=== PATIENT | female | born 1945 | race Caucasian/White ===

== ENCOUNTER → 2016-09-04 | Day surgery (SDC) | payer OTHER ==
[~2016-09-04] VITALS: Ht 149.9 cm; Wt 69.9 kg
[~2016-09-04] MED LIST: ACETYLCHOLINE OPHTH SOLN 1% 2ML As Ordered ONE; ADV250INH INH; ALEV220T26 PO; ASPI81TA85 PO; BALANCED SALT IRRIGATION SOLUTION 500ML BAG (FOR OR EYE MACHINE) As Ordered ONE; BIMA01SOL PO; CEFUROXIME 1MG/0.1ML INTRACAMERAL INJ As Ordered ONE; CRAN400C PO; D5W/0.2% SODIUM CHLORIDE 250 ML IV SCH; ECHI80CA PO; ENAL20TA PO; FISH1000 PO; HEALON DUET (HEALON 10MG/ML 0.55ML & HEALON ENDOCOAT 30MG/ML 0.85ML) As Ordered ONE; LIDOCAINE 0.75%/EPINEPHRINE 0.025% IN BSS 1ML SYR INTRACAMERAL (OR ONLY) As Ordered ONE; LORA10CA PO; LR 1,000 ML IV SCH; LUTE10TA PO; MAGNESIUM PO; MELO7.5T6 PO; MIDAZOLAM INJ 2 MG/2 ML VIAL (J2250) As Ordered ONE; OFLOXACIN 0.3 % (OCUFLOX) OPTH SOL 5ML OS ONE; OMEP20TA PO; PHENYLEPHRINE 2.5% OPHTH SOL 2ML OS ONE; POVIDONE-IODINE 5% OPHTH PREP SOL 30ML As Ordered ONE; PROPARACAINE 0.5% OPHTH SOL 15ML OS ONE; REDCAP3 PO; TOBRADEX OPHTH OINT 3.5 GM As Ordered ONE; TRIA37.5 PO; TROPICAMIDE 1% OPHTH SOLN 2 ML OS ONE; VITA100037 PO; VITA500C24 PO; fentaNYL 100 MCG/2 ML INJECTION (J3010) As Ordered ONE
[2016-09-04 12:00] VITALS: BP 118/72
--- NOTE | 2016-09-05 10:10 | RO ---
DATE OF PROCEDURE: 09/04/2016 PREOPERATIVE DIAGNOSIS: Visually significant nuclear sclerotic cataract left eye. 2. Glaucoma POSTOPERATIVE DIAGNOSIS: Visually significant nuclear sclerotic cataract left eye. 2. Glaucoma PROCEDURE: Extracapsular cataract extraction with use of phacoemulsification and placement of intraocular lens AU00T0, 20.5 diopter left eye with use of endoscopic cyclophotocoagulation. SURGEON: Christopher Olson DO DIRECTOR OF ACQUISITION MARKETING: ANESTHESIA: Local with monitored anesthesia care (MAC). COMPLICATIONS: None. POSTOPERATIVE CONDITION: Stable. INDICATION FOR SURGERY: Blurred vision left eye affecting patient's activities of daily living. DESCRIPTION OF PROCEDURE: The patient was seen in the preoperative area and properly identified. The correct operative eye was identified and marked. Attention was turned to that eye. The patient received topical antibiotics in the preoperative area. The patient then received topical dilating drops consisting of tropicamide and phenylephrine. The patient was then transferred to the operating room. The correct side was reidentified. The patient received topical anesthetics and antibiotics on the surface of the eye. The eye was prepped and draped in a sterile fashion. The upper and lower eyelids were isolated with Tegaderm tape, and the lids were held open with an adjustable speculum. Using a sideport blade, a paracentesis incision was made. Intraocular preservative-free lidocaine was then injected into the anterior chamber. Viscoelastic was then injected into the anterior chamber through the paracentesis. Using a 2.65 mm sharp-tipped keratome, the anterior chamber was entered via a temporal clear corneal incision. A continuous curvilinear capsulorrhexis was created with the aid of a 26-gauge cystotome and Utrata forceps. Hydrodissection was performed with balanced salt solution (BSS) on a blunt cannula until the nucleus was freely mobile. The crystalline lens was phacoemulsified and aspirated. Additional cohesive viscoelastic was placed into the capsular bag to deepen it. An AU00T0, 20.5 diopter lens was placed into the capsular bag and confirmed by visualizing the continuous curvilinear capsulorrhexis. Additional viscoelastic was placed in ciliary sulcus to deepen it. The ECP probe was introduced to clear corneal temporal incision and the ciliary processes were visualized. ECP laser was used for 270 degrees at a power of 0.25. Thirteen spots were fired and then the probe was removed from the eye. Additional irrigation and aspiration was used to remove cortical material and remaining viscoelastic. The clear corneal incision was hydrated with BSS on a blunt cannula. The lens was well positioned. The incisions were then tested for leaks and found to be negative. The eye was then palpated for appropriate pressure and adjusted accordingly with BSS. The eyelid speculum was then carefully removed. Tobradex ointment was placed in the eye. An eye patch and shield were then secured over the eye. The patient tolerated the procedure well and was discharged to the recovery unit in a stable condition. ERIC
== END | disposition home or self-care (01) ==
LOC: M SDC 08:10
PROVIDERS: ATTEND Ophthalmology
DX: H25.12 Age-related nuclear cataract, left eye (principal); H40.9 Unspecified glaucoma; I10 Essential (primary) hypertension; E78.5 Hyperlipidemia, unspecified; K21.9 Gastro-esophageal reflux disease without esophagitis; J44.9 Chronic obstructive pulmonary disease, unspecified; Z88.0 Allergy status to penicillin; Z88.8 Allergy status to other drugs, medicaments and biological substances; Z87.891 Personal history of nicotine dependence; Z79.899 Other long term (current) drug therapy
CPT/HCPCS: 66711; 66984; J2250; J3010; V2632

== ENCOUNTER → 2016-09-10 | Outpatient (CLI) | payer OTHER ==
[~2016-09-10] MED LIST changes: -ACETYLCHOLINE OPHTH SOLN 1% 2ML As Ordered ONE; -BALANCED SALT IRRIGATION SOLUTION 500ML BAG (FOR OR EYE MACHINE) As Ordered ONE; -CEFUROXIME 1MG/0.1ML INTRACAMERAL INJ As Ordered ONE; -D5W/0.2% SODIUM CHLORIDE 250 ML IV SCH; -HEALON DUET (HEALON 10MG/ML 0.55ML & HEALON ENDOCOAT 30MG/ML 0.85ML) As Ordered ONE; -LIDOCAINE 0.75%/EPINEPHRINE 0.025% IN BSS 1ML SYR INTRACAMERAL (OR ONLY) As Ordered ONE; -LR 1,000 ML IV SCH; -MIDAZOLAM INJ 2 MG/2 ML VIAL (J2250) As Ordered ONE; -OFLOXACIN 0.3 % (OCUFLOX) OPTH SOL 5ML OS ONE; -PHENYLEPHRINE 2.5% OPHTH SOL 2ML OS ONE; -POVIDONE-IODINE 5% OPHTH PREP SOL 30ML As Ordered ONE; -PROPARACAINE 0.5% OPHTH SOL 15ML OS ONE; -TOBRADEX OPHTH OINT 3.5 GM As Ordered ONE; -TROPICAMIDE 1% OPHTH SOLN 2 ML OS ONE; -fentaNYL 100 MCG/2 ML INJECTION (J3010) As Ordered ONE
--- NOTE | 2016-09-10 14:39 | REPMRS ---
Patient History The patient states she had a clinical breast exam in 09/2016. Patient is postmenopausal and is nulliparous. Family history of breast cancer in sister at age 50 or over and breast cancer in niece under age 50. Digital Woman Screen Mammo: September 10, 2016 - Exam #: [id number] Bilateral CC and MLO view(s) were taken. Technologist: Beth Abdul, Technologist Prior study comparison: August 28, 2015, digital woman screen mammo performed at [facility]. June 09, 2014, digital woman screen mammo performed at [facility]. FINDINGS: There are scattered fibroglandular densities. There has been no change in the appearance of the mammogram from the prior studies. There is a mild amount of residual fibroglandular tissue which is fairly symmetric. There is no interval development of dominant mass, architectural distortion, or clustered microcalcification suggestive of malignancy. ASSESSMENT: BI-RADS/ACR category 1 mammogram. Negative. Recommendation Routine screening mammogram in 1 year (for women over age 40). This mammogram was interpreted with the aid of an FDA-approved computer-aided dectection system. Electronically Signed By: Richy Strickland MD 09/10/16 0721
== END ==
LOC: M WHC 12:46
PROVIDERS: ATTEND Nurse Practitioner Women's Health
DX: Z12.31 Encounter for screening mammogram for malignant neoplasm of breast (principal); Z78.0 Asymptomatic menopausal state; Z13.820 Encounter for screening for osteoporosis; Z85.3 Personal history of malignant neoplasm of breast

== ENCOUNTER → 2016-09-10 | Outpatient (CLI) | payer OTHER ==
--- NOTE | 2016-09-12 09:02 | DEXA ---
AP SPINE L1 - L4 1.616 3.4 5.0 LT FEMUR TOTAL 0.8 7. -1.1 0.4 RT FEMUR TOTAL 0.790 -1.7 -0.2 TOTAL BODY TOTAL OTHER DUAL FEMUR FRAX* ASSESSMENT Risk factors: None. 10 year probability of fracture Major osteoporotic fracture 12.4 % Hip fracture 2.8 % COMMENTS: Normal bone densitometry of the spine. There is low bone density of the hips. The decreased density of the spine does represent a significant change. The decreased density of the left hip does represent a significant change. The decreased density of the right hip does represent a significant change. The density of the spine has decreased 13.9% since the initial exam on 2009. The spine density has decreased 4.6% since the most recent exam on 06/09/2014. The density of the left hip has decreased 15.3% since the initial exam on 2009. The density of the left hip has decreased 5.2% since the most recent exam on . The density of the right hip has decreased 18.1% since the initial exam on 09/18. The density of the right hip has decreased 7.7% since the most recent exam on . FOLLOW-UP: Recommendation for the next bone density exam: 2 years. ERIC
== END ==
LOC: M WHC 12:49
PROVIDERS: ATTEND Internal Medicine
DX: Z12.31 Encounter for screening mammogram for malignant neoplasm of breast (principal); Z13.820 Encounter for screening for osteoporosis; Z78.0 Asymptomatic menopausal state; Z85.3 Personal history of malignant neoplasm of breast
CPT/HCPCS: 77080; G0202; G0463

== ENCOUNTER → 2016-09-25 | Day surgery (SDC) | payer OTHER ==
[~2016-09-25] VITALS: Ht 149.9 cm; Wt 69.9 kg
[~2016-09-25] MED LIST changes: +ACETYLCHOLINE OPHTH SOLN 1% 2ML (MIOCHOL-E) As Ordered ONE; +BALANCED SALT IRRIGATION SOLUTION 500ML BAG (FOR OR EYE MACHINE) As Ordered ONE; +D5W/0.2% SODIUM CHLORIDE 250 ML IV ONE; +HEALON DUET (HEALON 10MG/ML 0.55ML & HEALON ENDOCOAT 30MG/ML 0.85ML) As Ordered ONE; +LIDOCAINE 0.75%/EPINEPHRINE 0.025% IN BSS 1ML SYR INTRACAMERAL (OR ONLY) As Ordered ONE; +MIDAZOLAM INJ 2 MG/2 ML VIAL (J2250) As Ordered ONE; +OFLOXACIN 0.3 % (OCUFLOX) OPTH SOL 5ML OD ONE; +PHENYLEPHRINE 2.5% OPHTH SOL 2ML OD ONE; +POVIDONE-IODINE 5% OPHTH PREP SOL 30ML As Ordered ONE; +PROPARACAINE 0.5% OPHTH SOL 15ML OD ONE; +TOBRADEX OPHTH OINT 3.5 GM As Ordered ONE; +TROPICAMIDE 1% OPHTH SOLN 2ML OD ONE; +fentaNYL 100 MCG/2 ML INJECTION (J3010) As Ordered ONE
[2016-09-25 12:45] VITALS: BP 121/72
--- NOTE | 2016-09-29 10:57 | RO ---
DATE OF PROCEDURE: 09/25/2016 PREOPERATIVE DIAGNOSES: 1. Visually significant nuclear sclerotic cataract right eye. 2. Glaucoma. POSTOPERATIVE DIAGNOSES: 1. Visually significant nuclear sclerotic cataract right eye. 2. Glaucoma. PROCEDURE: 1. Extracapsular cataract removal with insertion of intraocular lens implant, AU00T0, 19.5 diopter right eye. 2. Use of endoscopic cyclophotocoagulation. SURGEON: Christopher Olson DO MAINTENANCE ELECTRICIAN: ANESTHESIA: Local with monitored anesthesia care (MAC). COMPLICATIONS: None. POSTOPERATIVE CONDITION: Stable. INDICATION FOR SURGERY: Blurred vision right eye affecting patient's activities of daily living. DESCRIPTION OF PROCEDURE: The patient was seen in the preoperative area and properly identified. The correct operative eye was identified and marked. Attention was turned to that eye. The patient received topical antibiotics in the preoperative area. The patient then received topical dilating drops consisting of tropicamide and phenylephrine. The patient was then transferred to the operating room. The correct side was reidentified. The patient received topical anesthetics and antibiotics on the surface of the eye. The eye was prepped and draped in a sterile fashion. The upper and lower eyelids were isolated with Tegaderm tape, and the lids were held open with an adjustable speculum. Using a sideport blade, a paracentesis incision was made. Intraocular preservative-free lidocaine was then injected into the anterior chamber. Viscoelastic was then injected into the anterior chamber through the paracentesis. Using a 2.75 mm sharp-tipped keratome, the anterior chamber was entered via a temporal clear corneal incision. A continuous curvilinear capsulorrhexis was created with the aid of a 26-gauge cystotome and Utrata forceps. Hydrodissection was performed with balanced salt solution (BSS) on a blunt cannula until the nucleus was freely mobile. The crystalline lens was phacoemulsified and aspirated. Additional cohesive viscoelastic was placed into the capsular bag to deepen it. An AU00T0 lens was placed into the capsular bag and confirmed by visualizing the continuous curvilinear capsulorrhexis. Additional irrigation and aspiration was used to remove cortical material and remaining viscoelastic. After the implant is injected into the capsular bag, additional viscoelastic was placed in the ciliary sulcus. The endoscopic cyclophotocoagulation probe was placed into the anterior chamber from the temporal clear corneal incision and advanced to the distal ciliary sulcus so the prosthesis could be visualized on the monitor and photocoagulation was applied to the ciliary processes for a total energy of 0.15 for 270 degrees. Probe was then withdrawn from the eye. Irrigation aspiration was performed to remove all the viscoelastic. BSS was used to hydrate the temporal clear corneal incision and paracentesis incision. Miochol was then placed into the paracentesis incision site. Moderately small pupil. BSS was then used to reinflate the anterior chamber and adjust accordingly appropriate intraocular pressure. The clear corneal incision was hydrated with BSS on a blunt cannula. The lens was well positioned. The incisions were then tested for leaks and found to be negative. The eye was then palpated for appropriate pressure and adjusted accordingly with BSS. Several drops of antibiotics and Iopidine were placed in the eye. The eyelid speculum was then carefully removed. Maxitrol ointment was placed in the eye. An eye patch and shield were then secured over the eye. The patient tolerated the procedure well and was discharged to the recovery unit in a stable condition.
== END | disposition home or self-care (01) ==
LOC: M SDC 09:03
PROVIDERS: ATTEND Ophthalmology
DX: H25.11 Age-related nuclear cataract, right eye (principal); H40.10X0 Unspecified open-angle glaucoma, stage unspecified; I10 Essential (primary) hypertension; E78.5 Hyperlipidemia, unspecified; K21.9 Gastro-esophageal reflux disease without esophagitis; J44.9 Chronic obstructive pulmonary disease, unspecified; F17.210 Nicotine dependence, cigarettes, uncomplicated; Z88.0 Allergy status to penicillin; Z88.8 Allergy status to other drugs, medicaments and biological substances; Z79.899 Other long term (current) drug therapy
CPT/HCPCS: 66711; 66984; J2250; J3010; V2632

== ENCOUNTER 2017-09-23 09:36 | Day surgery (SDC) | payer OTHER ==
[2017-09-23] MEDS: NS 1,000 ML IV (10:43)
[2017-09-23] MEDS ORDERED: PROPOFOL 200 MG/20 ML VIAL As Ordered ×2 (11:03)
[2017-09-23] MEDS ORDERED: LIDOCAINE 2% INJ 100 MG/5 ML SDV (FOR ANES.) As Ordered ×2 (11:03→11:04)
[2017-09-23] MEDS ORDERED: PHENYLephrine HCL 500 MCG/5 ML (100MCG/ML) SYRINGE (J2370) As Ordered (11:31)
== END 2017-09-23 12:40 | disposition home or self-care (01) ==
LOC: M OPP 09:36
DX: Z12.11 Encounter for screening for malignant neoplasm of colon (principal); Z86.010 Personal history of colon polyps; K64.0 First degree hemorrhoids; K57.30 Diverticulosis of large intestine without perforation or abscess without bleeding; R12 Heartburn; K22.70 Barrett's esophagus without dysplasia; K22.8 Other specified diseases of esophagus; K44.9 Diaphragmatic hernia without obstruction or gangrene; I12.9 Hypertensive chronic kidney disease with stage 1 through stage 4 chronic kidney disease, or unspecified chronic kidney disease; E78.5 Hyperlipidemia, unspecified; M10.9 Gout, unspecified; K21.9 Gastro-esophageal reflux disease without esophagitis; R23.3 Spontaneous ecchymoses; M19.90 Unspecified osteoarthritis, unspecified site; M54.9 Dorsalgia, unspecified; Z85.828 Personal history of other malignant neoplasm of skin; R51 Headache; H25.9 Unspecified age-related cataract; H40.9 Unspecified glaucoma; Z78.0 Asymptomatic menopausal state; J44.9 Chronic obstructive pulmonary disease, unspecified; R06.02 Shortness of breath; N18.9 Chronic kidney disease, unspecified; N39.3 Stress incontinence (female) (male); Z87.891 Personal history of nicotine dependence; Z88.5 Allergy status to narcotic agent; Z88.0 Allergy status to penicillin; Z79.899 Other long term (current) drug therapy
CPT/HCPCS: G0105

== ENCOUNTER → 2017-10-27 | Outpatient (CLI) | payer OTHER | LOC: M WHC 13:17 | DX: Z12.31 Encounter for screening mammogram for malignant neoplasm of breast (principal); Z78.0 Asymptomatic menopausal state; Z80.3 Family history of malignant neoplasm of breast | CPT/HCPCS: 77067 ==

== ENCOUNTER → 2018-12-22 | Outpatient (CLI) | payer MEDICARE ==
[~2018-12-22] MED LIST changes: -ACETYLCHOLINE OPHTH SOLN 1% 2ML (MIOCHOL-E) As Ordered ONE; -BALANCED SALT IRRIGATION SOLUTION 500ML BAG (FOR OR EYE MACHINE) As Ordered ONE; +BIMA01SOL OU; -BIMA01SOL PO; -D5W/0.2% SODIUM CHLORIDE 250 ML IV ONE; +ENAL5TAB; -HEALON DUET (HEALON 10MG/ML 0.55ML & HEALON ENDOCOAT 30MG/ML 0.85ML) As Ordered ONE; -LIDOCAINE 0.75%/EPINEPHRINE 0.025% IN BSS 1ML SYR INTRACAMERAL (OR ONLY) As Ordered ONE; -MELO7.5T6 PO; +MELO7.5T7 PO; -MIDAZOLAM INJ 2 MG/2 ML VIAL (J2250) As Ordered ONE; -OFLOXACIN 0.3 % (OCUFLOX) OPTH SOL 5ML OD ONE; -PHENYLEPHRINE 2.5% OPHTH SOL 2ML OD ONE; -POVIDONE-IODINE 5% OPHTH PREP SOL 30ML As Ordered ONE; -PROPARACAINE 0.5% OPHTH SOL 15ML OD ONE; -TOBRADEX OPHTH OINT 3.5 GM As Ordered ONE; -TROPICAMIDE 1% OPHTH SOLN 2ML OD ONE; -VITA100037 PO; +VITA100067 PO; +VITA50005; -fentaNYL 100 MCG/2 ML INJECTION (J3010) As Ordered ONE
--- NOTE | 2018-12-22 19:28 | REPMRS ---
Patient History The patient states she has not had a clinical breast exam in over a year. Family history of breast cancer at age 50 or over in sister, breast cancer under age 50 in niece. Digital Woman Screen Mammo: December 22, 2018 - Exam #: [id number] Bilateral CC and MLO view(s) were taken. Technologist: Priscila So, Technologist Prior study comparison: October 27, 2017, bilateral digital woman screen mammo performed at [facility]. September 10, 2016, digital woman screen mammo performed at [facility]. August 28, 2015, digital woman screen mammo performed at [facility]. FINDINGS: There are scattered fibroglandular densities. There has been no change in the appearance of the mammogram from the prior studies. There is a mild amount of scattered fibroglandular density which is fairly symmetric. There is no interval development of dominant mass, architectural distortion, or grouped microcalcification suggestive of malignancy. 3-D tomosynthesis shows no additional findings. Assessment: BI-RADS/ACR category 1 mammogram. Negative Mammogram. Recommendation Routine screening mammogram of both breasts in 1 year (for women over age 40). This patient's Lifetime Breast Cancer Risk is estimated at 9.6 %. This mammogram was interpreted with the aid of an FDA-approved computer-aided dectection system. Electronically Signed By: Rony Raymundo MD 12/22/18 [id number]
== END ==
LOC: M WHC 12:58
PROVIDERS: ATTEND Nurse Practitioner Adult Health
DX: Z12.31 Encounter for screening mammogram for malignant neoplasm of breast (principal); Z80.3 Family history of malignant neoplasm of breast

== ENCOUNTER → 2020-09-20 | Outpatient (CLI) | payer MEDICARE ==
[~2020-09-20] MED LIST changes: -ASPI81TA85 PO; +ASPI81TA86 PO; -ENAL20TA PO; +ENAL20TA11 PO; +ENAL5TA; -ENAL5TAB; +OMEP-358 PO; -OMEP20TA PO
--- NOTE | 2020-09-20 13:09 | REPPI ---
INDICATION: ABNORMAL PULMONARY FUNCTION TESTS COMPARISON: 07/05/2019 TECHNIQUE: PA and lateral. FINDINGS: Chronic elevation to the left hemidiaphragm is again noted and unchanged. Lung elkins demonstrate mild chronic interstitial changes. No acute consolidation, obvious effusion or pneumothorax. Visualized portions of the mediastinum and cardiac silhouette are stable. Atherosclerotic changes to the aorta noted. Skeletal structures demonstrate degenerative changes primarily involving the bilateral shoulders and thoracic spine. 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 Chronic interstitial changes. <Electronically signed by Geovani Mcgrath > 09/20/20 0578
== END ==
LOC: M PLAIMG 12:47
PROVIDERS: ATTEND Internal Medicine Pulmonary Disease
DX: R94.2 Abnormal results of pulmonary function studies (principal)

== ENCOUNTER → 2020-12-03 | Outpatient (REF) | payer MEDICARE | LOC: M LAB REF 17:20 | PROVIDERS: ATTEND Internal Medicine Nephrology | DX: E83.42 Hypomagnesemia (principal) ==

== ENCOUNTER → 2021-09-30 | Outpatient (CLI) | payer MEDICARE ==
[~2021-09-30] MED LIST changes: +ALBU8.5H INH; +ALEV220T22 PO; +COQ-100C5 PO; +GLUCTAB6 PO; +MAGN400C PO; +OMEP40CA5 PO; +TRAM50TA2 PO; +TRIA37.53 PO; +VITA500045 PO; +VITMTA PO
== END ==
LOC: M LABSMTC 10:43
PROVIDERS: ATTEND Anesthesiology
DX: Z01.812 Encounter for preprocedural laboratory examination (principal)

== ENCOUNTER 2021-10-04 08:03 | Day surgery (SDC) | payer MEDICARE ==
[~2021-10-04] VITALS: Ht 149.9 cm; Wt 66.1 kg
[~2021-10-04 08:03] MED LIST changes: -GLUCTAB6 PO; +GLUCTAB7 PO; +NS 1,000 ML IV ONE; -TRIA37.53 PO; +TRIA37.577 PO
[2021-10-04] MEDS ORDERED: LIDOCAINE 2% 100MG/5ML SDV (FOR ANES.) As Ordered ONE (09:23)
[2021-10-04] MEDS ORDERED: propofoL 200 MG/20 ML VIAL As Ordered ONE (09:23)
[2021-10-04] MEDS ORDERED: fentaNYL 100 MCG/2 ML INJECTION As Ordered ONE (09:23)
[2021-10-04 09:56] VITALS: BP 154/73
== END 2021-10-04 09:55 | disposition home or self-care (01) ==
LOC: M OPP 08:03
PROVIDERS: ATTEND Internal Medicine Gastroenterology
DX: R68.81 Early satiety (principal); R12 Heartburn; R13.10 Dysphagia, unspecified; N28.9 Disorder of kidney and ureter, unspecified; J44.9 Chronic obstructive pulmonary disease, unspecified; Z79.1 Long term (current) use of non-steroidal anti-inflammatories (NSAID); Z79.51 Long term (current) use of inhaled steroids; Z79.891 Long term (current) use of opiate analgesic; Z79.899 Other long term (current) drug therapy; Z88.0 Allergy status to penicillin; Z88.5 Allergy status to narcotic agent; Z87.891 Personal history of nicotine dependence
CPT/HCPCS: 43235; J3010

== ENCOUNTER → 2021-11-01 | Outpatient (REF) | payer MEDICARE ==
[~2021-11-01] MED LIST changes: -NS 1,000 ML IV ONE
== END ==
LOC: M LAB REF 10:07
PROVIDERS: ATTEND Internal Medicine
DX: R19.7 Diarrhea, unspecified (principal)

== ENCOUNTER → 2022-03-26 | Outpatient (CLI) | payer MEDICARE | LOC: M PLAIMG 13:08 | PROVIDERS: ATTEND Internal Medicine Pulmonary Disease | DX: R05.9 Cough, unspecified (principal) ==

== ENCOUNTER → 2022-07-30 | Outpatient (CLI) | payer MEDICARE ==
[~2022-07-30] MED LIST changes: +BARIUM SULFATE 700 MG TABLET (E-Z-DISK) As Ordered ONE; +E-Z-PAQUE 96% w/w SUSP 176GM BTL As Ordered ONE; +ENAL1TAB48; -ENAL5TA; +VARIBAR NECTAR 40% w/v 240ML SUSP BTL As Ordered ONE; +VARIBAR PUDDING 40% w/v 230ML TUBE As Ordered ONE
== END ==
LOC: M RAD 10:05
PROVIDERS: ATTEND Otolaryngology
DX: R13.19 Other dysphagia (principal)

== ENCOUNTER 2022-11-03 12:33 | Day surgery (SDC) | payer MEDICARE ==
[~2022-11-03 12:33] MED LIST changes: -BARIUM SULFATE 700 MG TABLET (E-Z-DISK) As Ordered ONE; -E-Z-PAQUE 96% w/w SUSP 176GM BTL As Ordered ONE; +ENAL1TAB52 PO; -ENAL20TA11 PO; +NS 1,000 ML IV ONE; -VARIBAR NECTAR 40% w/v 240ML SUSP BTL As Ordered ONE; -VARIBAR PUDDING 40% w/v 230ML TUBE As Ordered ONE
[2022-11-03] MEDS ORDERED: propofoL 200 MG/20 ML VIAL As Ordered ONE (15:40)
[2022-11-03] MEDS ORDERED: LIDOCAINE 2% 100MG/5ML SDV (FOR ANES.) As Ordered ONE (15:40)
[2022-11-03 16:14] VITALS: TEMP 97.3
[2022-11-03 16:35] VITALS: BP 185/93; O2SAT 97
== END 2022-11-03 17:00 | disposition home or self-care (01) ==
LOC: M OPP 12:33
PROVIDERS: ATTEND Internal Medicine Gastroenterology
DX: K22.89 Other specified disease of esophagus (principal); K44.9 Diaphragmatic hernia without obstruction or gangrene; Z79.1 Long term (current) use of non-steroidal anti-inflammatories (NSAID); Z79.899 Other long term (current) drug therapy; Z88.0 Allergy status to penicillin; Z88.5 Allergy status to narcotic agent

== ENCOUNTER 2023-06-25 12:06 | Inpatient (IN) | payer MEDICARE ==
[~2023-06-25] VITALS: Ht 149.9 cm; Wt 61.4 kg
[~2023-06-25 12:06] MED LIST changes: -NS 1,000 ML IV ONE
[2023-06-25] MEDS: traMADol 50 MG TAB PO ONE (15:04)
[2023-06-25 16:25] LABS: BASO % 0.4 % (0.0-1.0); EOS # 0.1 10^3/uL (0.0-0.5); EOS % 0.8 % (0.0-3.0); HEMATOCRIT 34.5 % (36.0-47.0); HEMOGLOBIN 11.3 g/dl (12.0-15.5); LYMPH % 13.5 % (24.0-44.0); MEAN CORPUSCULAR HEMOGLOBIN 33.6 pg (27.0-33.0); MEAN CORPUSCULAR HGB CONC 32.8 g/dl (32.0-36.5); MEAN CORPUSCULAR VOLUME 102.7 fl (80.0-96.0); MONO # 0.6 10^3/uL (0.0-0.8); MONO % 7.5 % (2.0-8.0); NEUTROPHILS # 5.7 10^3/uL (1.5-8.5); PLATELET COUNT, AUTOMATED 110 10^3/uL (150-450); RED BLOOD COUNT 3.36 10^6/uL (4.00-5.40); WHITE BLOOD COUNT 7.3 10^3/uL (4.0-10.0)
[2023-06-25 16:39] LABS: INR 1.03; PROTHROMBIN TIME 13.2 SECONDS (12.5-14.5)
[2023-06-25 16:56] LABS: ALBUMIN 3.4 G/DL (3.2-5.2); BILIRUBIN,TOTAL 0.8 MG/DL (0.3-1.2); CALCIUM LEVEL 9.1 MG/DL (8.3-10.6); CREATININE FOR GFR 1.54 MG/DL (0.55-1.30); GLOMERULAR FILTRATION RATE 34.6 (>39); MAGNESIUM LEVEL 2.2 MG/DL (1.8-2.4); POTASSIUM SERUM 3.8 MMOL/L (3.5-5.1); TOTAL PROTEIN 5.6 G/DL (5.7-8.2)
[2023-06-25] MEDS ORDERED: MAALOX 30 ML SUSP *UDC PO PRN (17:15)
[2023-06-25] MEDS ORDERED: MOM 30ML SUSPENSION UDC PO PRN (17:15)
[2023-06-25] MEDS: NS 1,000 ML IV SCH (17:15)
[2023-06-25] MEDS: MORPHINE 4 MG/ML 1ML VIAL IV ONE (17:17)
[2023-06-25] MEDS ORDERED: MORPHINE 2 MG/ML 1ML VIAL IV PRN ×2 (17:25)
[2023-06-25] MEDS ORDERED: ALBUTEROL 90 MCG/ACT 8GM HFA INHALER INH PRN (18:05)
[2023-06-25] MEDS ORDERED: COEN100T PO (18:45)
[2023-06-25] MEDS ORDERED: THERTAB65 PO (18:45)
[2023-06-25] MEDS ORDERED: HOME MED LIST COMPLETE! XX SCH (18:50)
[2023-06-25] MEDS: LATANOPROST 0.005% OPHTH SOLN 2.5 ML OU SCH (21:00)
[2023-06-25 21:53] VITALS: BP 188/99; TEMP 97.9; O2SAT 95
[2023-06-25] MEDS: ACETAMINOPHEN TAB 650MG DOSE (2X325MG) PO PRN (22:15)
[2023-06-25] MEDS: MORPHINE 4 MG/ML 1ML VIAL IV PRN (23:22)
[2023-06-26 00:10] VITALS: BP 142/91; O2SAT 96
[2023-06-26 01:34] LABS: TOTAL 25(OH) VITAMIN D 110.5 NG/ML (20.0-100.0)
[2023-06-26 05:45] VITALS: BP 147/91; TEMP 97.7; O2SAT 98
[2023-06-26] MEDS: ADVAIR HFA 115/21MCG INHALER INH SCH (07:47)
[2023-06-26 07:48] VITALS: O2SAT 98
[2023-06-26] MEDS: PREVNAR-20 VACCINE 0.5ML SYRINGE IM.IMMUN ONE (08:40)
[2023-06-26] MEDS: FLUZONE HIGH DOSE(65YR UP)QUAD/PF 240MCG/0.7ML SYRINGE IM.IMMUN ONE (08:40)
[2023-06-26] MEDS: LABETALOL 100MG/20ML VIAL IV PRN (11:38)
[2023-06-26 14:15] VITALS: BP 168/103; TEMP 97.9; O2SAT 95
[2023-06-26] MEDS: HYDROMORPHONE HCL 0.5 MG/ 0.5 ML SYRINGE IV PRN (16:26)
[2023-06-26] MEDS: LIDOCAINE 5% (LIDODERM) PATCH TD SCH (16:42)
[2023-06-26 17:00] VITALS: BP 148/79
[2023-06-26 17:22] LABS: CALCIUM LEVEL 8.9 MG/DL (8.3-10.6); CREATININE FOR GFR 1.44 MG/DL (0.55-1.30); GLOMERULAR FILTRATION RATE 37.4 (>39)
[2023-06-26] MEDS ORDERED: ROCURONIUM BROMIDE 50MG/5ML VIAL As Ordered ONE (18:19)
[2023-06-26] MEDS ORDERED: LIDOCAINE 2% 100MG/5ML SDV (FOR ANES.) As Ordered ONE (18:19)
[2023-06-26] MEDS ORDERED: propofoL 200 MG/20 ML VIAL As Ordered ONE (18:19)
[2023-06-26] MEDS ORDERED: fentaNYL 100 MCG/2 ML INJECTION As Ordered ONE (18:19)
[2023-06-26] MEDS ORDERED: VANCOMYCIN 1000MG/20ML VIAL As Ordered ONE (18:26)
[2023-06-26] MEDS ORDERED: TRANEXAMIC ACID 100 MG/ML 10ML VIAL As Ordered ONE (18:27)
[2023-06-26] MEDS: ceFAZolin 2 GM/D5W 50 ML IV BAG As Ordered ONE (19:25)
[2023-06-26] MEDS ORDERED: PHENYLephrine 500MCG 5ML (100MCG/ML) SYRINGE As Ordered ONE (19:30)
[2023-06-26] MEDS ORDERED: ePHEDrine SULFATE 25 MG/5 ML(5MG/ML) SYRINGE As Ordered ONE (19:30)
[2023-06-26] MEDS ORDERED: METOCLOPRAMIDE INJ 10MG/2ML VIAL As Ordered ONE (19:33)
[2023-06-26] MEDS ORDERED: ONDANSETRON 4MG 2ML VIAL As Ordered ONE (19:33)
[2023-06-26] MEDS ORDERED: ACETAMINOPHEN 1000MG 100ML IV BAG As Ordered ONE (19:52)
[2023-06-26] MEDS ORDERED: SUGAMMADEX SODIUM 500 MG/5 ML VIAL (BRIDION) As Ordered ONE (20:41)
[2023-06-26] MEDS: HEPARIN SOD (PORCINE) 5000UNITS/ML 1ML VIAL/SYRINGE SC SCH (21:00)
[2023-06-26] MEDS ORDERED: oxyCODONE 5MG TAB PO PRN (22:35)
[2023-06-26] MEDS: LR 1,000 ML IV SCH ×2 (22:35→23:50)
[2023-06-26] MEDS ORDERED: HYDROMORPHONE HCL 0.5 MG/ 0.5 ML SYRINGE IV PRN (22:35)
[2023-06-26] MEDS: fentaNYL 100 MCG/2 ML INJECTION IV PRN (23:10)
[2023-06-26] MEDS: ONDANSETRON 4MG 2ML VIAL IV PRN (23:34)
[2023-06-27] VITALS (13 sets, daily range): BP systolic 102–183; BP diastolic 58–87; TEMP 97.3–98.1; O2SAT 90–97
[2023-06-27] MEDS: PROMETHAZINE 25MG/ML 1ML VIAL IV ONE (00:10)
[2023-06-27 07:48] LABS: BASO % 0.3 % (0.0-1.0); HEMATOCRIT 28.9 % (36.0-47.0); LYMPH # 0.4 10^3/uL (1.5-5.0); LYMPH % 3.7 % (24.0-44.0); MEAN CORPUSCULAR HEMOGLOBIN 33.6 pg (27.0-33.0); MEAN CORPUSCULAR HGB CONC 31.8 g/dl (32.0-36.5); MEAN CORPUSCULAR VOLUME 105.5 fl (80.0-96.0); MONO # 0.6 10^3/uL (0.0-0.8); MONO % 5.7 % (2.0-8.0); NEUTROPHILS # 9.9 10^3/uL (1.5-8.5); NEUTROPHILS % 89.4 % (36.0-66.0); RED BLOOD COUNT 2.74 10^6/uL (4.00-5.40); WHITE BLOOD COUNT 11.1 10^3/uL (4.0-10.0)
[2023-06-27] MEDS: ASPIRIN 81MG ENTERIC TABLET PO SCH (08:07)
[2023-06-27 08:10] LABS: CALCIUM LEVEL 7.5 MG/DL (8.3-10.6); CREATININE FOR GFR 1.53 MG/DL (0.55-1.30); GLOMERULAR FILTRATION RATE 34.9 (>39); MAGNESIUM LEVEL 1.7 MG/DL (1.8-2.4); POTASSIUM SERUM 4.4 MMOL/L (3.5-5.1)
[2023-06-27 08:12] LABS: HEMOGLOBIN 9.2 g/dl (12.0-15.5)
[2023-06-27] MEDS: D5W/0.45% SODIUM CHLORIDE 1,000 ML IV SCH (13:59)
[2023-06-28 05:58] VITALS: BP 145/82; TEMP 97; O2SAT 95
[2023-06-28 06:51] LABS: BASO % 0.3 % (0.0-1.0); EOS % 0.2 % (0.0-3.0); HEMATOCRIT 28.6 % (36.0-47.0); HEMOGLOBIN 9.2 g/dl (12.0-15.5); LYMPH # 0.6 10^3/uL (1.5-5.0); LYMPH % 6.4 % (24.0-44.0); MEAN CORPUSCULAR HEMOGLOBIN 33.3 pg (27.0-33.0); MEAN CORPUSCULAR HGB CONC 32.2 g/dl (32.0-36.5); MEAN CORPUSCULAR VOLUME 103.6 fl (80.0-96.0); MONO # 0.7 10^3/uL (0.0-0.8); MONO % 7.2 % (2.0-8.0); NEUTROPHILS # 8.5 10^3/uL (1.5-8.5); NEUTROPHILS % 84.5 % (36.0-66.0); PLATELET COUNT, AUTOMATED 105 10^3/uL (150-450); RED BLOOD COUNT 2.76 10^6/uL (4.00-5.40)
[2023-06-28 07:12] LABS: CALCIUM LEVEL 8.1 MG/DL (8.3-10.6); CREATININE FOR GFR 1.85 MG/DL (0.55-1.30); MAGNESIUM LEVEL 1.7 MG/DL (1.8-2.4); POTASSIUM SERUM 3.8 MMOL/L (3.5-5.1)
[2023-06-28] MEDS: LR 1,000 ML IV SCH (08:51)
[2023-06-28] MEDS: CO-ENZYME Q10 50 MG CAP PO SCH (10:36)
[2023-06-28] MEDS: ASCORBIC ACID 500 MG TAB PO SCH (10:37)
[2023-06-28] MEDS: OMEPRAZOLE 20MG CAP PO SCH (10:37)
[2023-06-28 15:21] VITALS: BP 147/77; TEMP 97.9; O2SAT 92
[2023-06-28 20:10] VITALS: BP 146/72; TEMP 97.9; O2SAT 95
[2023-06-29 05:43] VITALS: BP 179/88; TEMP 97.7; O2SAT 97
[2023-06-29 06:19] LABS: BASO % 0.3 % (0.0-1.0); EOS # 0.1 10^3/uL (0.0-0.5); EOS % 0.9 % (0.0-3.0); HEMATOCRIT 27.4 % (36.0-47.0); HEMOGLOBIN 8.7 g/dl (12.0-15.5); LYMPH # 0.8 10^3/uL (1.5-5.0); LYMPH % 10.3 % (24.0-44.0); MEAN CORPUSCULAR HEMOGLOBIN 32.5 pg (27.0-33.0); MEAN CORPUSCULAR HGB CONC 31.8 g/dl (32.0-36.5); MEAN CORPUSCULAR VOLUME 102.2 fl (80.0-96.0); MONO # 0.6 10^3/uL (0.0-0.8); MONO % 8.2 % (2.0-8.0); NEUTROPHILS % 79.2 % (36.0-66.0); PLATELET COUNT, AUTOMATED 116 10^3/uL (150-450); RED BLOOD COUNT 2.68 10^6/uL (4.00-5.40); WHITE BLOOD COUNT 7.6 10^3/uL (4.0-10.0)
[2023-06-29 06:44] LABS: CALCIUM LEVEL 8.2 MG/DL (8.3-10.6); CREATININE FOR GFR 1.97 MG/DL (0.55-1.30); MAGNESIUM LEVEL 1.7 MG/DL (1.8-2.4); POTASSIUM SERUM 3.9 MMOL/L (3.5-5.1)
[2023-06-29 08:42] LABS: CREATININE,RANDOM URINE 51.9 MG/DL
[2023-06-29] MEDS: VITAMIN D 50,000 UNITS CAPSULE (ERGOCALCIFEROL 1.25MG) PO SCH (08:55)
[2023-06-29] MEDS: MORPHINE 2 MG/ML 1ML VIAL IV PRN (09:38)
[2023-06-29 12:21] LABS: HEMOGLOBIN 8.6 g/dl (12.0-15.5)
[2023-06-29] MEDS: MAGNESIUM OXIDE 400MG TAB (MAG-OX) PO SCH (14:03)
[2023-06-29 15:00] VITALS: BP 118/78; TEMP 97.7; O2SAT 94
[2023-06-29 20:41] VITALS: BP 136/86; TEMP 97.5; O2SAT 93
[2023-06-30 05:56] VITALS: BP 146/90; TEMP 97.5; O2SAT 96
[2023-06-30 06:25] LABS: CALCIUM LEVEL 8.3 MG/DL (8.3-10.6); CREATININE FOR GFR 1.32 MG/DL (0.55-1.30); GLOMERULAR FILTRATION RATE 41.3 (>39); MAGNESIUM LEVEL 1.5 MG/DL (1.8-2.4); POTASSIUM SERUM 3.8 MMOL/L (3.5-5.1)
[2023-06-30 06:34] LABS: BASO % 0.3 % (0.0-1.0); EOS # 0.1 10^3/uL (0.0-0.5); EOS % 0.7 % (0.0-3.0); HEMOGLOBIN 8.7 g/dl (12.0-15.5); LYMPH # 0.6 10^3/uL (1.5-5.0); LYMPH % 8.9 % (24.0-44.0); MEAN CORPUSCULAR HEMOGLOBIN 33.5 pg (27.0-33.0); MEAN CORPUSCULAR HGB CONC 32.2 g/dl (32.0-36.5); MEAN CORPUSCULAR VOLUME 103.8 fl (80.0-96.0); MONO # 0.5 10^3/uL (0.0-0.8); MONO % 7.7 % (2.0-8.0); NEUTROPHILS # 5.7 10^3/uL (1.5-8.5); NEUTROPHILS % 81.4 % (36.0-66.0); PLATELET COUNT, AUTOMATED 124 10^3/uL (150-450)
[2023-06-30] MEDS: MAG SULF 1GM/100ML (MAG RUN) 1 GM in IV 1 EA IV SCH (07:06)
[2023-06-30] MEDS ORDERED: ACETAMINOPHEN TAB 650MG DOSE (2X325MG) PO PRN (07:20)
[2023-06-30] MEDS ORDERED: PERCOCET 5MG/325MG TAB PO PRN (07:20)
[2023-06-30] MEDS: MIRALAX *UNIT DOSE* 17GM PACKET PO SCH (12:20)
[2023-06-30] MEDS: METAMUCIL (PSYLLIUM) PACKET PO SCH (12:20)
[2023-06-30] MEDS: PERCOCET 5MG/325MG TAB PO PRN (13:31)
[2023-06-30 14:00] VITALS: BP 145/72; TEMP 97.9; O2SAT 96
[2023-06-30] MEDS: ACETAMINOPHEN 500 MG TAB PO SCH (14:00)
[2023-06-30] MEDS: DYAZIDE 37.5/25 CAP (TRIAM/HCTZ) PO SCH (14:42)
[2023-06-30] MEDS: CYCLOBENZAPRINE 5MG TABLET PO SCH (14:43)
[2023-06-30] MEDS: GABAPENTIN 100 MG CAP PO SCH (17:22)
[2023-06-30 22:00] VITALS: BP 150/71; TEMP 97.5; O2SAT 95
[2023-07-01 05:23] VITALS: BP 168/87; TEMP 98.2; O2SAT 99
[2023-07-01 07:36] LABS: BASO % 0.4 % (0.0-1.0); EOS # 0.2 10^3/uL (0.0-0.5); EOS % 3.7 % (0.0-3.0); HEMATOCRIT 27.3 % (36.0-47.0); HEMOGLOBIN 8.7 g/dl (12.0-15.5); LYMPH % 20.8 % (24.0-44.0); MEAN CORPUSCULAR HEMOGLOBIN 32.7 pg (27.0-33.0); MEAN CORPUSCULAR HGB CONC 31.9 g/dl (32.0-36.5); MEAN CORPUSCULAR VOLUME 102.6 fl (80.0-96.0); MONO # 0.5 10^3/uL (0.0-0.8); MONO % 10.3 % (2.0-8.0); NEUTROPHILS # 2.9 10^3/uL (1.5-8.5); NEUTROPHILS % 63.9 % (36.0-66.0); PLATELET COUNT, AUTOMATED 132 10^3/uL (150-450); RED BLOOD COUNT 2.66 10^6/uL (4.00-5.40); WHITE BLOOD COUNT 4.6 10^3/uL (4.0-10.0)
[2023-07-01 07:53] LABS: CALCIUM LEVEL 8.5 MG/DL (8.3-10.6); CREATININE FOR GFR 1.27 MG/DL (0.55-1.30); GLOMERULAR FILTRATION RATE 43.2 (>39); MAGNESIUM LEVEL 1.8 MG/DL (1.8-2.4); POTASSIUM SERUM 3.7 MMOL/L (3.5-5.1)
[2023-07-01] MEDS ORDERED: CYCL5TAB PO (10:27)
[2023-07-01] MEDS ORDERED: PERCOCET PO (10:27)
[2023-07-01] MEDS ORDERED: MAGN400T2 PO (10:27)
[2023-07-01] MEDS ORDERED: LIDO5TD TD (10:27)
[2023-07-01] MEDS ORDERED: ASPI81TAEC PO (10:27)
[2023-07-01] MEDS ORDERED: GABA-1171 PO (10:27)
[2023-07-01] MEDS ORDERED: MIRA3350 PO (10:27)
[2023-07-01] MEDS ORDERED: ACET-683 PO (10:29)
== END 2023-07-01 12:05 | DRG 522 ==
LOC: M ED 12:06 → EDBD 12:06 → M ED INP 17:15 → ENRESERV 20:36 → M MS5PR 21:32
PROVIDERS: ADMIT Student in an Organized Health Care Education/Training Program; ATTEND Student in an Organized Health Care Education/Training Program
PROC: 0SRS0JZ Replacement of Left Hip Joint, Femoral Surface with Synthetic Substitute, Open Approach (ICD-10-PCS; principal; 2023-06-26 15:30)
DX: S72.142A Displaced intertrochanteric fracture of left femur, initial encounter for closed fracture (principal); N17.9 Acute kidney failure, unspecified; D62 Acute posthemorrhagic anemia; E87.0 Hyperosmolality and hypernatremia; I12.9 Hypertensive chronic kidney disease with stage 1 through stage 4 chronic kidney disease, or unspecified chronic kidney disease; J44.9 Chronic obstructive pulmonary disease, unspecified; K22.70 Barrett's esophagus without dysplasia; K21.9 Gastro-esophageal reflux disease without esophagitis; N18.30 Chronic kidney disease, stage 3 unspecified; M19.90 Unspecified osteoarthritis, unspecified site; E78.5 Hyperlipidemia, unspecified; W18.30XA Fall on same level, unspecified, initial encounter; Y92.003 Bedroom of unspecified non-institutional (private) residence as the place of occurrence of the external cause; H40.9 Unspecified glaucoma; E55.9 Vitamin D deficiency, unspecified; Z88.0 Allergy status to penicillin; Z88.5 Allergy status to narcotic agent; Z79.899 Other long term (current) drug therapy; Z79.82 Long term (current) use of aspirin

== ENCOUNTER → 2023-07-09 | Outpatient (CLI) | payer MEDICARE ==
[~2023-07-09] MED LIST changes: +ACET-683 PO; +ASPI81TAEC PO; +COEN100T PO; +CYCL5TAB PO; +GABA-1171 PO; +LIDO5TD TD; +MAGN400T2 PO; +MIRA3350 PO; +PERCOCET PO; +THERTAB65 PO
== END ==
LOC: M SOG 08:11
PROVIDERS: ATTEND Physician Assistant
DX: Z53.9 Procedure and treatment not carried out, unspecified reason (principal)

== ENCOUNTER → 2023-08-13 | Outpatient (CLI) | payer MEDICARE | LOC: M SOG 14:40 | PROVIDERS: ATTEND Physician Assistant | DX: S72.092D Other fracture of head and neck of left femur, subsequent encounter for closed fracture with routine healing (principal); Z96.642 Presence of left artificial hip joint ==

== ENCOUNTER → 2023-10-08 | Outpatient (CLI) | payer MEDICARE | LOC: M SOG 08:05 | PROVIDERS: ATTEND Physician Assistant | DX: S72.092A Other fracture of head and neck of left femur, initial encounter for closed fracture (principal); Y93.9 Activity, unspecified; Y92.9 Unspecified place or not applicable ==

== ENCOUNTER → 2023-12-24 | Outpatient (CLI) | payer MEDICARE ==
[~2023-12-24] MED LIST changes: -CRAN400C PO; +CRANBERRY400 MG PO
== END ==
LOC: M SOG 07:55
PROVIDERS: ATTEND Physician Assistant
DX: Z96.642 Presence of left artificial hip joint (principal)

== ENCOUNTER → 2024-03-11 | Outpatient (CLI) | payer MEDICAID, MEDICARE | LOC: M WHC 13:20 | PROVIDERS: ATTEND Nurse Practitioner Adult Health | DX: Z13.820 Encounter for screening for osteoporosis (principal); M15.9 Polyosteoarthritis, unspecified; E55.9 Vitamin D deficiency, unspecified; M81.0 Age-related osteoporosis without current pathological fracture ==

== ENCOUNTER 2025-02-03 13:38 | Inpatient (IN) | payer MEDICARE, MEDICAID ==
[~2025-02-03] VITALS: Ht 129.5 cm; Wt 62.3 kg
[~2025-02-03 13:38] MED LIST changes: -ADV250INH INH; +ADVA1AER9 INH; -CYCL5TAB PO; +CYCL5TAB4 PO; +ERGO125013 PO; -VITA500045 PO
[2025-02-03 15:03] LABS: BASO # 0.1 10^3/uL (0.0-0.2); BASO % 0.4 % (0.0-1.0); EOS # 0.0 10^3/uL (0.0-0.5); EOS % 0.2 % (0.0-3.0); LYMPH # 1.0 10^3/uL (1.5-5.0); LYMPH % 6.6 % (24.0-44.0); MONO # 0.9 10^3/uL (0.0-0.8); MONO % 6.1 % (2.0-8.0); NEUTROPHILS # 12.2 10^3/uL (1.5-8.5); NEUTROPHILS % 85.7 % (36.0-66.0); PLATELET COUNT, AUTOMATED 150 10^3/uL (150-450)
[2025-02-03 15:30] LABS: ALT/SGPT 17.0 U/L (7.0-40); AST/SGOT 25.0 U/L (<34); CALCIUM LEVEL 9.1 MG/DL (8.3-10.6); CARBON DIOXIDE LEVEL 33.0 MMOL/L (20-31); CHLORIDE LEVEL 97.0 MMOL/L (98-107); CREATININE FOR GFR 2.79 MG/DL (0.55-1.30); GLOMERULAR FILTRATION RATE 16.5 (>32); POTASSIUM SERUM 4.3 MMOL/L (3.5-5.1); SODIUM LEVEL 141.0 MMOL/L (136-145)
[2025-02-03] MEDS: NS (Normal Saline) 0.9% 1,000 ML IV SCH ×2 (16:43→21:45)
[2025-02-03] MEDS: MORPHINE 2 MG/ML 1 ML VIAL IV ONE (17:51)
[2025-02-03] MEDS ORDERED: ACET-897 PO (19:52)
[2025-02-03] MEDS ORDERED: ALEN70TA82 PO (19:55)
[2025-02-03] MEDS ORDERED: TORS20TA2 PO (19:56)
[2025-02-03] MEDS ORDERED: PRED10TA2 PO (19:56)
[2025-02-03] MEDS ORDERED: HOME MED LIST COMPLETE! XX SCH (20:00)
[2025-02-03 20:06] LABS: MAGNESIUM LEVEL 1.9 MG/DL (1.8-2.4)
[2025-02-03] MEDS ORDERED: ALBUTEROL 90 MCG/ACT 8 GM HFA INHALER INH PRN (21:25)
[2025-02-03] MEDS ORDERED: ACETAMINOPHEN *IV* 500 MG in IV 1 EA IV PRN (21:25)
[2025-02-03 21:47] LABS: VENOUS BASE EXCESS 4.0 (-2.0-2.0); VENOUS HCO3 28.2 MMOL/L (23.0-27.0); VENOUS O2 SATURATION 97.0 % (60.0-80.0); VENOUS PARTIAL PRESSURE CO2 40.8 mmHg (38.0-50.0); VENOUS PARTIAL PRESSURE O2 95.1 mmHg (30.0-50.0); VENOUS PH 7.457 UNITS (7.330-7.430); VENOUS STANDARD HCO3 28.0 MMOL/L; VENOUS TOTAL CO2 29.4 MMOL/L (24.0-28.0)
[2025-02-03 22:05] LABS: INR 0.94
[2025-02-03] MEDS: ACETAMINOPHEN *IV* 1,000 MG in IV 1 EA IV PRN (23:02)
[2025-02-03 23:14] VITALS: BP 119/83; TEMP 97.2; O2SAT 95
[2025-02-03 23:27] VITALS: O2SAT 72
[2025-02-03 23:28] VITALS: O2SAT 78
[2025-02-03 23:29] VITALS: O2SAT 84; O2SAT 95
[2025-02-03 23:30] VITALS: O2SAT 93
[2025-02-03] MEDS: LATANOPROST 0.005% OPHTH SOLN 2.5 ML OU SCH (23:46)
[2025-02-03 23:57] LABS: OSMOLALITY SERUM 322 MOSM/KG (280-301)
[2025-02-04] VITALS (11 sets, daily range): BP systolic 122–164; BP diastolic 82–98; TEMP 97–99.5; O2SAT 84–97
[2025-02-04 00:02] LABS: C REACTIVE PROTEIN QUANTITATIV < 0.50 MG/DL (<1.0); CPK CREATINE PHOSPHOKINASE 20 U/L (34-145)
[2025-02-04] MEDS: CALCIUM GLUCONATE 1,000 MG in DEXTROSE 5% (D5W) MINI-BAG PLU 100 ML IV ONE (01:43)
[2025-02-04] MEDS: ONDANSETRON 4MG 2ML VIAL IV PRN (01:43)
[2025-02-04 05:02] LABS: PLATELET COUNT, AUTOMATED 111 10^3/uL (150-450)
[2025-02-04 05:05] LABS: URIC ACID,RANDOM URINE 22.8 MG/DL
[2025-02-04 05:13] LABS: KETONE, URINE AUTO RFX NEGATIVE (NEGATIVE); LEUKOCYTE ESTERASE UR AUTO RFX NEGATIVE (NEGATIVE); NITRITE, URINE AUTO RFX NEGATIVE (NEGATIVE); RBC, URINE AUTO RFX 0 /HPF (0-3); SQUAM EPITHELIAL CELL UR AURFX 2 /HPF (0-6); WBC, URINE AUTO RFX 4 /HPF (0-3)
[2025-02-04 05:28] LABS: ALT/SGPT 11.0 U/L (7.0-40); AST/SGOT 15.0 U/L (<34); CALCIUM LEVEL 8.2 MG/DL (8.3-10.6); CARBON DIOXIDE LEVEL 29.0 MMOL/L (20-31); CHLORIDE LEVEL 99.0 MMOL/L (98-107); CREATININE FOR GFR 3.3 MG/DL (0.55-1.30); GLOMERULAR FILTRATION RATE 13.5 (>32); MAGNESIUM LEVEL 1.8 MG/DL (1.8-2.4); POTASSIUM SERUM 4.0 MMOL/L (3.5-5.1); SODIUM LEVEL 140.0 MMOL/L (136-145)
[2025-02-04] MEDS: PANTOPRAZOLE 40MG VIAL IV SCH (08:16)
[2025-02-04] MEDS: ADVAIR HFA 115/21 MCG INHALER INH SCH (08:26)
[2025-02-04] MEDS ORDERED: MORPHINE 4 MG/ML 1 ML VIAL IV PRN (09:00)
[2025-02-04 09:23] LABS: PHOSPHORUS LEVEL 7.6 MG/DL (2.4-5.1)
[2025-02-04] MEDS: dexAMETHasone 4 MG/ML 1 ML VIAL IV SCH (09:33)
[2025-02-04] MEDS: NS 500 ML IV ONE ×2 (09:33→11:37)
[2025-02-05] VITALS (10 sets, daily range): BP systolic 141–175; BP diastolic 77–91; TEMP 97–97.8; O2SAT 90–98
[2025-02-05 07:23] LABS: PLATELET COUNT, AUTOMATED 84 10^3/uL (150-450)
[2025-02-05 07:40] LABS: CALCIUM LEVEL 7.5 MG/DL (8.3-10.6); CARBON DIOXIDE LEVEL 26.0 MMOL/L (20-31); CHLORIDE LEVEL 105.0 MMOL/L (98-107); CREATININE FOR GFR 2.87 MG/DL (0.55-1.30); EOSINOPHILS 1 % (0-3); GLOMERULAR FILTRATION RATE 16.0 (>32); LYMPHOCYTES 12 % (16-44); MONOCYTES 7 % (0-5); NEUTROPHILS 78 % (28-66); PLATELET ESTIMATE DECREASED (NORMAL); POTASSIUM SERUM 3.8 MMOL/L (3.5-5.1); SODIUM LEVEL 146.0 MMOL/L (136-145)
[2025-02-05] MEDS ORDERED: HYDROMORPHONE HCL 0.5 MG/0.5 ML SYRINGE IV PRN (11:40)
[2025-02-05] MEDS ORDERED: MORPHINE 4 MG/ML 1 ML VIAL IV PRN (11:40)
[2025-02-05] MEDS ORDERED: LEVALBUTEROL 1.25 MG 0.5ML CONCENTRATE NEB INH PRN (11:40)
[2025-02-05] MEDS: LR 1,000 ML IV SCH (12:42)
[2025-02-05] MEDS: CALCIUM GLUCONATE 1,000 MG in DEXTROSE 5% (D5W) MINI-BAG PLU 100 ML IV SCH (12:42)
[2025-02-05] MEDS ORDERED: ONDANSETRON 4MG 2ML VIAL As Ordered ONE (13:33)
[2025-02-05] MEDS ORDERED: SUGAMMADEX SODIUM 500 MG/5 ML VIAL As Ordered ONE (13:34)
[2025-02-05] MEDS ORDERED: dexAMETHasone 4 MG/ML 1 ML VIAL As Ordered ONE (13:34)
[2025-02-05] MEDS ORDERED: LIDOCAINE 2% 100 MG/5 ML SDV (FOR ANES.) As Ordered ONE (13:34)
[2025-02-05] MEDS ORDERED: ACETAMINOPHEN 1000MG/100ML IV BAG As Ordered ONE (13:34)
[2025-02-05] MEDS ORDERED: ROCURONIUM BROMIDE 50MG/5ML VIAL As Ordered ONE (13:34)
[2025-02-05] MEDS ORDERED: ALBUTEROL SULFATE 2.5 MG/0.5 ML INH CONCENTRATE NEB SOLN As Ordered ONE (14:07)
[2025-02-05] MEDS ORDERED: SUCCINYLCHOLINE 100MG/5ML SYRINGE As Ordered ONE (14:32)
[2025-02-05] MEDS ORDERED: ETOMIDATE 20 MG/10 ML VIAL As Ordered ONE (14:43)
[2025-02-05] MEDS ORDERED: dexmedeTOMIDine (4 MCG/ML) 200 MCG/50 ML BTL As Ordered ONE (14:56)
[2025-02-05] MEDS ORDERED: INDOCYANINE GREEN 25 MG VIAL As Ordered ONE (14:58)
[2025-02-05] MEDS: ONDANSETRON 4MG 2ML VIAL IV PRN (15:55)
[2025-02-05] MEDS: LABETALOL 100 MG/20 ML VIAL IV SCH (15:56)
[2025-02-05] MEDS: HYDROMORPHONE HCL 0.5 MG/0.5 ML SYRINGE IV PRN (16:05)
[2025-02-05] MEDS: LABETALOL 100 MG/20 ML VIAL IV ONE (16:25)
[2025-02-06 01:19] VITALS: BP 143/74; TEMP 97.3; O2SAT 97
[2025-02-06 04:55] VITALS: BP 150/77; O2SAT 97
[2025-02-06 06:03] LABS: BASO # 0.0 10^3/uL (0.0-0.2); BASO % 0.5 % (0.0-1.0); EOS # 0.0 10^3/uL (0.0-0.5); EOS % 0.0 % (0.0-3.0); LYMPH # 0.2 10^3/uL (1.5-5.0); LYMPH % 3.8 % (24.0-44.0); MONO # 0.6 10^3/uL (0.0-0.8); MONO % 9.8 % (2.0-8.0); NEUTROPHILS # 5.3 10^3/uL (1.5-8.5); NEUTROPHILS % 85.1 % (36.0-66.0)
[2025-02-06 06:07] LABS: PLATELET COUNT, AUTOMATED 86 10^3/uL (150-450)
[2025-02-06 06:29] LABS: CALCIUM LEVEL 7.5 MG/DL (8.3-10.6); CARBON DIOXIDE LEVEL 20.0 MMOL/L (20-31); CHLORIDE LEVEL 109.0 MMOL/L (98-107); CREATININE FOR GFR 2.69 MG/DL (0.55-1.30); GLOMERULAR FILTRATION RATE 17.3 (>32); POTASSIUM SERUM 4.2 MMOL/L (3.5-5.1); SODIUM LEVEL 144.0 MMOL/L (136-145)
[2025-02-06] MEDS ORDERED: E-Z-PAQUE 96% w/w SUSP 176 GM BTL As Ordered ONE (07:41)
[2025-02-06 12:00] VITALS: BP 165/85; TEMP 97.9; O2SAT 91
[2025-02-06] MEDS: SODIUM BICARBONATE 100 MEQ in STERILE WATER LITER BAG 1,000 ML IV SCH (13:29)
[2025-02-06 14:25] VITALS: BP 165/85; TEMP 97.2; O2SAT 90
[2025-02-06] MEDS ORDERED: DEXTROSE 50% 50 ML SYRINGE IV PRN (14:40)
[2025-02-06] MEDS ORDERED: GLUCOSE 4 GM CHEW PO PRN (14:40)
[2025-02-06] MEDS ORDERED: GLUCAGON INJ 1 MG VIAL SC PRN (14:40)
[2025-02-06] MEDS: FLUZONE HIGH DOSE (65+) 0.5 ML SYRINGE (25-26) IM.IMMUN ONE (17:18)
[2025-02-06 20:00] VITALS: BP 164/90; TEMP 97.3; O2SAT 92
[2025-02-06] MEDS: amLODIPine 5 MG TAB PO SCH (20:28)
[2025-02-07 04:00] VITALS: BP 162/87; TEMP 97; O2SAT 95
[2025-02-07 04:02] VITALS: O2SAT 91
[2025-02-07 05:40] VITALS: O2SAT 94
[2025-02-07 07:18] LABS: BASO # 0.0 10^3/uL (0.0-0.2); BASO % 0.4 % (0.0-1.0); EOS # 0.1 10^3/uL (0.0-0.5); EOS % 1.6 % (0.0-3.0); LYMPH # 0.5 10^3/uL (1.5-5.0); LYMPH % 9.5 % (24.0-44.0); MONO # 0.5 10^3/uL (0.0-0.8); MONO % 9.9 % (2.0-8.0); NEUTROPHILS # 4.2 10^3/uL (1.5-8.5); NEUTROPHILS % 77.7 % (36.0-66.0); PLATELET COUNT, AUTOMATED 114 10^3/uL (150-450)
[2025-02-07 07:43] LABS: CALCIUM LEVEL 7.2 MG/DL (8.3-10.6); CARBON DIOXIDE LEVEL 28.0 MMOL/L (20-31); CHLORIDE LEVEL 100.0 MMOL/L (98-107); CREATININE FOR GFR 2.13 MG/DL (0.55-1.30); GLOMERULAR FILTRATION RATE 22.8 (>32); MAGNESIUM LEVEL 1.4 MG/DL (1.8-2.4); PHOSPHORUS LEVEL 3.8 MG/DL (2.4-5.1); POTASSIUM SERUM 3.9 MMOL/L (3.5-5.1); SODIUM LEVEL 138.0 MMOL/L (136-145)
[2025-02-07] MEDS: dexAMETHasone 4 MG/ML 1 ML VIAL IV SCH (09:20)
[2025-02-07] MEDS: IPRATROPIUM 0.5 MG/ALBUTEROL 2.5 MG INH SOL UD 3 ML NEB PRN (09:40)
[2025-02-07] MEDS: MAG SULF 1GM/100ML (MAG RUN) 1 GM in IV 1 EA IV SCH (09:41)
[2025-02-07 12:00] VITALS: BP 164/97; TEMP 97.7; O2SAT 90
[2025-02-07 20:46] VITALS: BP 150/82; O2SAT 91
[2025-02-08 04:00] VITALS: BP 152/82; TEMP 97.2; O2SAT 94
[2025-02-08 06:18] LABS: BASO # 0.0 10^3/uL (0.0-0.2); BASO % 0.5 % (0.0-1.0); EOS # 0.1 10^3/uL (0.0-0.5); EOS % 0.9 % (0.0-3.0); LYMPH # 0.7 10^3/uL (1.5-5.0); LYMPH % 10.0 % (24.0-44.0); MONO # 0.7 10^3/uL (0.0-0.8); MONO % 10.0 % (2.0-8.0); NEUTROPHILS # 5.6 10^3/uL (1.5-8.5); NEUTROPHILS % 76.4 % (36.0-66.0); PLATELET COUNT, AUTOMATED 117 10^3/uL (150-450)
[2025-02-08 06:51] LABS: CALCIUM LEVEL 7.5 MG/DL (8.3-10.6); CARBON DIOXIDE LEVEL 34.0 MMOL/L (20-31); CHLORIDE LEVEL 96.0 MMOL/L (98-107); CREATININE FOR GFR 1.86 MG/DL (0.55-1.30); GLOMERULAR FILTRATION RATE 26.9 (>32); MAGNESIUM LEVEL 1.8 MG/DL (1.8-2.4); POTASSIUM SERUM 3.4 MMOL/L (3.5-5.1); SODIUM LEVEL 138.0 MMOL/L (136-145)
[2025-02-08] MEDS: POTASSIUM CHLORIDE 10MEQ SR TABLET PO ONE (09:33)
[2025-02-08] MEDS: MAG SULF 1GM/100ML (MAG RUN) 1 GM in IV 1 EA IV ONE (09:33)
[2025-02-08 12:00] VITALS: BP 153/95; TEMP 97.5; O2SAT 92
[2025-02-08] MEDS: CALCITRIOL 0.25 MCG CAP (S0169) PO SCH (12:07)
[2025-02-08] MEDS ORDERED: ACET-683 PO (14:18)
[2025-02-08 20:00] VITALS: TEMP 97.3; O2SAT 94
[2025-02-09 06:00] VITALS: BP 191/89; TEMP 97.2; O2SAT 95
[2025-02-09 06:23] VITALS: BP 125/74
[2025-02-09 07:11] LABS: BASO # 0.1 10^3/uL (0.0-0.2); BASO % 0.7 % (0.0-1.0); EOS # 0.1 10^3/uL (0.0-0.5); EOS % 0.9 % (0.0-3.0); LYMPH # 0.9 10^3/uL (1.5-5.0); LYMPH % 9.4 % (24.0-44.0); MONO # 0.8 10^3/uL (0.0-0.8); MONO % 8.2 % (2.0-8.0); NEUTROPHILS # 7.1 10^3/uL (1.5-8.5); NEUTROPHILS % 76.4 % (36.0-66.0); PLATELET COUNT, AUTOMATED 110 10^3/uL (150-450)
[2025-02-09 07:43] LABS: CALCIUM LEVEL 7.6 MG/DL (8.3-10.6); CARBON DIOXIDE LEVEL 33.0 MMOL/L (20-31); CHLORIDE LEVEL 99.0 MMOL/L (98-107); CREATININE FOR GFR 1.63 MG/DL (0.55-1.30); GLOMERULAR FILTRATION RATE 31.5 (>32); POTASSIUM SERUM 3.4 MMOL/L (3.5-5.1); SODIUM LEVEL 138.0 MMOL/L (136-145)
[2025-02-09 09:49] VITALS: BP 123/68
[2025-02-09] MEDS: PANTOPRAZOLE 40MG TAB PO SCH (09:49)
== END 2025-02-09 15:18 | disposition home health service (06) | DRG 354 ==
LOC: M ED 13:38 → M ED INP 21:21 → M MSPAV 22:42
PROVIDERS: ADMIT Student in an Organized Health Care Education/Training Program; ATTEND General Practice
PROC: 8E0W4CZ Robotic Assisted Procedure of Trunk Region, Percutaneous Endoscopic Approach (ICD-10-PCS; 2025-02-05)
PROC: 0WQF4ZZ Repair Abdominal Wall, Percutaneous Endoscopic Approach (ICD-10-PCS; principal; 2025-02-05 13:00)
DX: K42.0 Umbilical hernia with obstruction, without gangrene (principal); I45.2 Bifascicular block; N17.9 Acute kidney failure, unspecified; E87.0 Hyperosmolality and hypernatremia; E87.3 Alkalosis; I12.9 Hypertensive chronic kidney disease with stage 1 through stage 4 chronic kidney disease, or unspecified chronic kidney disease; J44.9 Chronic obstructive pulmonary disease, unspecified; N18.30 Chronic kidney disease, stage 3 unspecified; I70.0 Atherosclerosis of aorta; I25.10 Atherosclerotic heart disease of native coronary artery without angina pectoris; E78.5 Hyperlipidemia, unspecified; I44.0 Atrioventricular block, first degree; K21.9 Gastro-esophageal reflux disease without esophagitis; Z96.642 Presence of left artificial hip joint; M19.011 Primary osteoarthritis, right shoulder; M19.012 Primary osteoarthritis, left shoulder; E66.9 Obesity, unspecified; E88.09 Other disorders of plasma-protein metabolism, not elsewhere classified; E83.42 Hypomagnesemia; E87.6 Hypokalemia; E83.51 Hypocalcemia; Z88.0 Allergy status to penicillin; Z88.5 Allergy status to narcotic agent; Z79.899 Other long term (current) drug therapy; M06.9 Rheumatoid arthritis, unspecified

== ENCOUNTER 2025-02-10 13:53 | Emergency (ER) | payer MEDICARE, MEDICAID ==
[~2025-02-10] VITALS: Ht 121.9 cm; Wt 57.0 kg
[~2025-02-10 13:53] MED LIST changes: +ACET-897 PO; +ALEN70TA82 PO; +PRED10TA2 PO; +TORS20TA2 PO
[2025-02-10 14:51] LABS: BASO # 0.1 10^3/uL (0.0-0.2); BASO % 0.5 % (0.0-1.0); EOS # 0.2 10^3/uL (0.0-0.5); EOS % 1.8 % (0.0-3.0); LYMPH # 1.0 10^3/uL (1.5-5.0); LYMPH % 9.7 % (24.0-44.0); MONO # 0.9 10^3/uL (0.0-0.8); MONO % 9.0 % (2.0-8.0); NEUTROPHILS # 7.7 10^3/uL (1.5-8.5); NEUTROPHILS % 74.6 % (36.0-66.0); PLATELET COUNT, AUTOMATED 131 10^3/uL (150-450)
[2025-02-10 15:12] LABS: ALT/SGPT 14.0 U/L (7.0-40); AST/SGOT 33.0 U/L (<34); CALCIUM LEVEL 7.8 MG/DL (8.3-10.6); CARBON DIOXIDE LEVEL 33.0 MMOL/L (20-31); CHLORIDE LEVEL 102.0 MMOL/L (98-107); CREATININE FOR GFR 1.52 MG/DL (0.55-1.30); GLOMERULAR FILTRATION RATE 34.2 (>32); POTASSIUM SERUM 4.0 MMOL/L (3.5-5.1); SODIUM LEVEL 142.0 MMOL/L (136-145)
[2025-02-10 16:27] VITALS: BP 178/85
[2025-02-10] MEDS: TORSEMIDE 20 MG TAB PO SCH (16:27)
[2025-02-10 17:00] VITALS: BP 168/85; TEMP 98; O2SAT 99
== END 2025-02-10 17:35 | disposition home or self-care (01) ==
LOC: M ED 13:53 → EDBD 13:53 → M ED 17:35
DX: R60.1 Generalized edema (principal); I44.0 Atrioventricular block, first degree; I45.10 Unspecified right bundle-branch block; I49.1 Atrial premature depolarization; N18.9 Chronic kidney disease, unspecified; I10 Essential (primary) hypertension; J44.9 Chronic obstructive pulmonary disease, unspecified; K21.9 Gastro-esophageal reflux disease without esophagitis; F41.9 Anxiety disorder, unspecified; Z86.79 Personal history of other diseases of the circulatory system; Z88.0 Allergy status to penicillin; Z88.5 Allergy status to narcotic agent; Z79.52 Long term (current) use of systemic steroids; Z79.1 Long term (current) use of non-steroidal anti-inflammatories (NSAID); Z79.899 Other long term (current) drug therapy

== ENCOUNTER → 2025-02-23 | Outpatient (REF) | payer MEDICARE, MEDICAID ==
[2025-02-23 18:12] LABS: TOTAL PROTEIN,RANDOM URINE 152.6 MG/DL (0.0-14.0)
== END ==
LOC: M LAB REF 16:39
PROVIDERS: ATTEND Nurse Practitioner Family
DX: R80.9 Proteinuria, unspecified (principal)

== ENCOUNTER → 2025-03-30 | Outpatient (REF) | payer MEDICARE, MEDICAID ==
[~2025-03-30] MED LIST changes: +ALBU2.5V10 INH; +AMLO1TAB24 PO; +CALC1CAP31 PO; +FERR325T19 PO; +MAGN400T35 PO; +RED600CA7 PO; -REDCAP3 PO; +SPIR50TA4 PO
[2025-03-31 18:26] LABS: IRON (FE) 45.0 UG/DL (50-170); PERCENT SATURATION 19.2 % (13.2-45.0)
[2025-03-31 19:03] LABS: TOTAL PROTEIN,RANDOM URINE 229.4 MG/DL (0.0-14.0)
== END ==
LOC: M LAB REF 16:56
PROVIDERS: ATTEND Nurse Practitioner Family
DX: D50.9 Iron deficiency anemia, unspecified (principal); R80.9 Proteinuria, unspecified

== ENCOUNTER 2025-04-07 15:50 | Inpatient (IN) | payer MEDICARE, MEDICAID ==
[~2025-04-07] VITALS: Ht 149.9 cm; Wt 53.0 kg
[~2025-04-07 15:50] MED LIST changes: -ALBU2.5V10 INH; -AMLO1TAB24 PO; -CALC1CAP31 PO; -FERR325T19 PO; -MAGN400T35 PO; -SPIR50TA4 PO
[2025-04-07 16:23] LABS: BASO # 0.1 10^3/uL (0.0-0.2); BASO % 0.4 % (0.0-1.0); EOS # 0.0 10^3/uL (0.0-0.5); EOS % 0.2 % (0.0-3.0); LYMPH # 0.6 10^3/uL (1.5-5.0); LYMPH % 5.2 % (24.0-44.0); MONO # 0.3 10^3/uL (0.0-0.8); MONO % 2.8 % (2.0-8.0); NEUTROPHILS # 10.7 10^3/uL (1.5-8.5); NEUTROPHILS % 89.2 % (36.0-66.0); PLATELET COUNT, AUTOMATED 127 10^3/uL (150-450)
[2025-04-07 16:36] LABS: INR 0.91
[2025-04-07 16:53] LABS: C REACTIVE PROTEIN QUANTITATIV 0.63 MG/DL (<1.0)
[2025-04-07 16:54] LABS: ALT/SGPT 30.0 U/L (7.0-40); AST/SGOT 20.0 U/L (<34); CALCIUM LEVEL 7.8 MG/DL (8.3-10.6); CARBON DIOXIDE LEVEL 26.0 MMOL/L (20-31); CHLORIDE LEVEL 103.0 MMOL/L (98-107); CREATININE FOR GFR 2.49 MG/DL (0.55-1.30); GLOMERULAR FILTRATION RATE 18.9 (>32); POTASSIUM SERUM 4.7 MMOL/L (3.5-5.1); SODIUM LEVEL 142.0 MMOL/L (136-145)
[2025-04-07] MEDS: VANCOMYCIN HCL 1,250 MG, VIAL MATE ADAPTER 1 EACH in NS 250 ML IV ONE (17:52)
[2025-04-07] MEDS: ACETAMINOPHEN *IV* 1,000 MG in IV 1 EA IV ONE (18:09)
[2025-04-07] MEDS ORDERED: ACET-683 PO (18:42)
[2025-04-07] MEDS ORDERED: MAGN400T35 PO (18:45)
[2025-04-07] MEDS ORDERED: AMLO1TAB24 PO (18:49)
[2025-04-07] MEDS ORDERED: FERR325T19 PO (18:49)
[2025-04-07] MEDS ORDERED: SPIR50TA4 PO (18:50)
[2025-04-07] MEDS ORDERED: CALC1CAP31 PO (18:51)
[2025-04-07] MEDS ORDERED: ALBU2.5V10 INH (18:52)
[2025-04-07] MEDS ORDERED: HOME MED LIST COMPLETE! XX SCH (18:55)
[2025-04-07] MEDS ORDERED: LR 1,000 ML IV SCH (19:00)
[2025-04-07] MEDS ORDERED: ALBUTEROL SULFATE 2.5 MG/0.5 ML INH CONCENTRATE NEB SOLN NEB PRN (19:30)
[2025-04-07 19:53] LABS: AMORPHOUS SEDIMENT SMALL (NEGATIVE); APPEARANCE, URINE CLEAR (CLEAR); BACTERIA, URINE AUTO NEGATIVE (NEGATIVE); BILIRUBIN, URINE AUTO NEGATIVE (NEGATIVE); BLOOD, URINE BLOOD NEGATIVE (NEGATIVE); GLUCOSE, URINE (UA) AUTO 1+ mg/dL (NEGATIVE); KETONE, URINE AUTO NEGATIVE (NEGATIVE); LEUKOCYTE ESTERASE, URINE AUTO NEGATIVE (NEGATIVE); NITRITE, URINE AUTO NEGATIVE (NEGATIVE); PROTEIN, URINE AUTO 3+ mg/dL (NEGATIVE); RBC, URINE AUTO 1 /HPF (0-3); SPECIFIC GRAVITY URINE AUTO 1.011 (1.002-1.035); SQUAMOUS EPITHELIAL CELL UR AU 0 /HPF (0-6); UROBILINOGEN, URINE AUTO 0.2 mg/dL (0.0-2.0); WBC, URINE AUTO 0 /HPF (0-3)
[2025-04-07] MEDS ORDERED: GLUCAGON INJ 1 MG VIAL SC PRN (19:55)
[2025-04-07] MEDS ORDERED: GLUCOSE 4 GM CHEW PO PRN (19:55)
[2025-04-07] MEDS ORDERED: DEXTROSE 50% 50 ML SYRINGE IV PRN (19:55)
[2025-04-07] MEDS: ADVAIR HFA 115/21 MCG INHALER INH SCH (20:41)
[2025-04-07] MEDS: IPRATROPIUM 0.5 MG/ALBUTEROL 2.5 MG INH SOL UD 3 ML NEB SCH (20:41)
[2025-04-07] MEDS: cefTRIAXone SOD 1 GM in DEXTROSE 5% (D5W) ADV/MINI-BAG 50 ML IV SCH (20:55)
[2025-04-07] MEDS: INSULIN LISPRO (NovoLOG) PER UNIT SC SCH (21:12)
[2025-04-07] MEDS: DOXYCYCLINE HYCLATE 100 MG TABLET PO SCH (21:57)
[2025-04-07] MEDS: traMADol 50 MG TAB PO SCH (21:57)
[2025-04-07 22:20] VITALS: BP 124/68; TEMP 98; O2SAT 99
[2025-04-07 23:42] VITALS: BP 128/92; TEMP 97.2; O2SAT 98
[2025-04-08] VITALS (26 sets, daily range): BP systolic 118–169; BP diastolic 66–86; TEMP 97.9–98.2; O2SAT 94–99
[2025-04-08] MEDS: LATANOPROST 0.005% OPHTH SOLN 2.5 ML OU SCH (00:27)
[2025-04-08 05:32] LABS: PLATELET COUNT, AUTOMATED 120 10^3/uL (150-450)
[2025-04-08 05:54] LABS: CALCIUM LEVEL 7.6 MG/DL (8.3-10.6); CARBON DIOXIDE LEVEL 28.0 MMOL/L (20-31); CHLORIDE LEVEL 104.0 MMOL/L (98-107); CREATININE FOR GFR 2.37 MG/DL (0.55-1.30); GLOMERULAR FILTRATION RATE 20.1 (>32); POTASSIUM SERUM 4.5 MMOL/L (3.5-5.1); SODIUM LEVEL 144.0 MMOL/L (136-145)
[2025-04-08] MEDS: HEPARIN SOD 5000 UNITS/ML 1 ML VIAL/SYRINGE SQ SCH (06:19)
[2025-04-08] MEDS: INSULIN LISPRO (NovoLOG) PER UNIT SC SCH (07:30)
[2025-04-08] MEDS: PANTOPRAZOLE 40MG TAB PO SCH (08:04)
[2025-04-08] MEDS: predniSONE 10 MG TAB PO SCH (08:05)
[2025-04-08] MEDS: FUROSEMIDE injection 100 MG, VIAL 2 BAG 13MM ADAPTER 1 EACH in NS 100 ML IV SCH (11:15)
[2025-04-09] VITALS (18 sets, daily range): BP systolic 126–180; BP diastolic 64–90; TEMP 97.6–98.4; O2SAT 94–99
[2025-04-09 05:38] LABS: PLATELET COUNT, AUTOMATED 125 10^3/uL (150-450)
[2025-04-09 06:00] LABS: CALCIUM LEVEL 8.3 MG/DL (8.3-10.6); CARBON DIOXIDE LEVEL 29.0 MMOL/L (20-31); CHLORIDE LEVEL 101.0 MMOL/L (98-107); CREATININE FOR GFR 2.58 MG/DL (0.55-1.30); GLOMERULAR FILTRATION RATE 18.2 (>32); IRON (FE) 66.0 UG/DL (50-170); PERCENT SATURATION 26.6 % (13.2-45.0); POTASSIUM SERUM 5.0 MMOL/L (3.5-5.1); SODIUM LEVEL 143.0 MMOL/L (136-145)
[2025-04-09 06:02] LABS: TOTAL 25(OH) VITAMIN D 46.8 NG/ML (20.0-100.0); VITAMIN B12 LEVEL 359.0 PG/ML (211-911)
[2025-04-09] MEDS: CYANOCOBALAMIN 500 MCG TAB PO SCH (10:14)
[2025-04-09] MEDS: GABAPENTIN 100 MG CAP PO ONE (14:16)
[2025-04-10] VITALS (23 sets, daily range): BP systolic 125–167; BP diastolic 65–74; TEMP 97.1–98.6; O2SAT 94–99
[2025-04-10 06:13] LABS: PLATELET COUNT, AUTOMATED 106 10^3/uL (150-450)
[2025-04-10 06:44] LABS: CALCIUM LEVEL 8.1 MG/DL (8.3-10.6); CARBON DIOXIDE LEVEL 30.0 MMOL/L (20-31); CHLORIDE LEVEL 99.0 MMOL/L (98-107); CREATININE FOR GFR 2.53 MG/DL (0.55-1.30); GLOMERULAR FILTRATION RATE 18.6 (>32); POTASSIUM SERUM 4.8 MMOL/L (3.5-5.1); SODIUM LEVEL 142.0 MMOL/L (136-145)
[2025-04-10] MEDS: GABAPENTIN 100 MG CAP PO SCH (08:30)
[2025-04-10] MEDS: DARBEPOETIN 100 MCG/0.5 ML *NON-DIALYSIS* SYRINGE SC SCH (09:46)
[2025-04-10] MEDS: TORSEMIDE 50 MG PER 1/2 TAB PO SCH (11:42)
[2025-04-10] MEDS: BISACODYL 10 MG SUPP PR PRN (11:45)
[2025-04-10] MEDS: CEFPODOXIME PROXETIL 200 MG TABLET PO SCH (17:33)
[2025-04-11] VITALS (16 sets, daily range): BP systolic 151–164; BP diastolic 79–91; TEMP 97–97.8; O2SAT 90–100
[2025-04-11 06:51] LABS: PLATELET COUNT, AUTOMATED 107 10^3/uL (150-450)
[2025-04-11 07:20] LABS: CALCIUM LEVEL 8.5 MG/DL (8.3-10.6); CARBON DIOXIDE LEVEL 31.0 MMOL/L (20-31); CHLORIDE LEVEL 98.0 MMOL/L (98-107); CREATININE FOR GFR 2.51 MG/DL (0.55-1.30); GLOMERULAR FILTRATION RATE 18.8 (>32); POTASSIUM SERUM 4.6 MMOL/L (3.5-5.1); SODIUM LEVEL 140.0 MMOL/L (136-145)
[2025-04-12] VITALS (19 sets, daily range): BP systolic 158–161; BP diastolic 78–83; TEMP 97.1–98.1; O2SAT 91–100
[2025-04-12 05:58] LABS: PLATELET COUNT, AUTOMATED 128 10^3/uL (150-450)
[2025-04-12 06:19] LABS: CALCIUM LEVEL 8.5 MG/DL (8.3-10.6); CARBON DIOXIDE LEVEL 31.0 MMOL/L (20-31); CHLORIDE LEVEL 97.0 MMOL/L (98-107); CREATININE FOR GFR 2.81 MG/DL (0.55-1.30); GLOMERULAR FILTRATION RATE 16.4 (>32); POTASSIUM SERUM 4.9 MMOL/L (3.5-5.1); SODIUM LEVEL 141.0 MMOL/L (136-145)
[2025-04-12] MEDS: NS (Normal Saline) 0.9% 1,000 ML IV SCH (16:07)
[2025-04-13] VITALS (22 sets, daily range): BP systolic 139–184; BP diastolic 69–92; TEMP 97–98.9; O2SAT 90–100
[2025-04-13 05:46] LABS: PLATELET COUNT, AUTOMATED 103 10^3/uL (150-450)
[2025-04-13 06:11] LABS: CALCIUM LEVEL 8.3 MG/DL (8.3-10.6); CARBON DIOXIDE LEVEL 28.0 MMOL/L (20-31); CHLORIDE LEVEL 101.0 MMOL/L (98-107); CREATININE FOR GFR 2.38 MG/DL (0.55-1.30); GLOMERULAR FILTRATION RATE 20.0 (>32); POTASSIUM SERUM 4.8 MMOL/L (3.5-5.1); SODIUM LEVEL 142.0 MMOL/L (136-145)
[2025-04-13] MEDS ORDERED: PERCOCET 5MG/325MG TAB PO PRN (10:10)
[2025-04-13] MEDS: traMADol 50 MG TAB PO PRN (12:37)
[2025-04-13 20:32] LABS: ESTIMATED AVERAGE GLUCOSE 105.0 MG/DL (60-110)
[2025-04-14] VITALS (7 sets, daily range): BP systolic 128–204; BP diastolic 62–107; TEMP 97.4–98.6; O2SAT 95–99
[2025-04-14] MEDS ORDERED: LABETALOL 100 MG/20 ML VIAL IV SCH
[2025-04-14] MEDS: **hydrALAZINE** 10 MG TAB PO ONE (00:26)
[2025-04-14 06:29] LABS: PLATELET COUNT, AUTOMATED 110 10^3/uL (150-450)
[2025-04-14 06:49] LABS: CALCIUM LEVEL 7.9 MG/DL (8.3-10.6); CARBON DIOXIDE LEVEL 25.0 MMOL/L (20-31); CHLORIDE LEVEL 105.0 MMOL/L (98-107); CREATININE FOR GFR 2.17 MG/DL (0.55-1.30); GLOMERULAR FILTRATION RATE 22.3 (>32); POTASSIUM SERUM 5.1 MMOL/L (3.5-5.1); SODIUM LEVEL 142.0 MMOL/L (136-145)
[2025-04-14] MEDS: ACETAMINOPHEN *IV* 1,000 MG in IV 1 EA IV PRN (08:58)
[2025-04-14] MEDS: METOPROLOL TART 25 MG TABLET PO ONE (11:50)
[2025-04-14] MEDS: **hydrALAZINE HCL** 25 MG TAB PO SCH (14:30)
[2025-04-14] MEDS: METOPROLOL TART 25 MG TABLET PO SCH (21:03)
[2025-04-15 00:38] VITALS: BP 154/75; TEMP 97.8; O2SAT 92
[2025-04-15 03:07] VITALS: BP 177/81; TEMP 98.1; O2SAT 94
[2025-04-15 08:00] VITALS: BP 152/68; TEMP 97.9; O2SAT 91
[2025-04-15 08:47] LABS: PLATELET COUNT, AUTOMATED 120 10^3/uL (150-450)
[2025-04-15 09:16] LABS: EOSINOPHILS 2 % (0-3); LYMPHOCYTES 9 % (16-44); METAMYELOCYTES 1 % (0-0); MONOCYTES 4 % (0-5); MYELOCYTES 1 % (0-0); NEUTROPHILS 81 % (28-66)
[2025-04-15 09:18] LABS: PLATELET ESTIMATE DECREASED (NORMAL)
[2025-04-15 09:28] LABS: ALT/SGPT 500.0 U/L (7.0-40); AST/SGOT 166.0 U/L (<34); CALCIUM LEVEL 7.7 MG/DL (8.3-10.6); CARBON DIOXIDE LEVEL 21.0 MMOL/L (20-31); CHLORIDE LEVEL 106.0 MMOL/L (98-107); CREATININE FOR GFR 2.12 MG/DL (0.55-1.30); GLOMERULAR FILTRATION RATE 23.0 (>32); MAGNESIUM LEVEL 1.7 MG/DL (1.8-2.4); POTASSIUM SERUM 4.4 MMOL/L (3.5-5.1); SODIUM LEVEL 141.0 MMOL/L (136-145)
[2025-04-15 12:00] VITALS: BP 131/60; TEMP 97.5; O2SAT 96
[2025-04-15] MEDS: **hydrALAZINE HCL** 25 MG TAB PO SCH (13:09)
[2025-04-15 16:00] VITALS: BP 135/65; TEMP 98.1; O2SAT 96
[2025-04-15] MEDS: CEPACOL LOZENGE PO PRN (17:11)
[2025-04-15 20:11] VITALS: BP 175/81; TEMP 98.2; O2SAT 96
[2025-04-16] VITALS (7 sets, daily range): BP systolic 138–171; BP diastolic 69–79; TEMP 97.2–98.2; O2SAT 92–99
[2025-04-16 10:34] LABS: ALT/SGPT 331.0 U/L (7.0-40); AST/SGOT 49.0 U/L (<34); CALCIUM LEVEL 7.8 MG/DL (8.3-10.6); CARBON DIOXIDE LEVEL 23.0 MMOL/L (20-31); CHLORIDE LEVEL 107.0 MMOL/L (98-107); CREATININE FOR GFR 2.18 MG/DL (0.55-1.30); GLOMERULAR FILTRATION RATE 22.2 (>32); POTASSIUM SERUM 4.1 MMOL/L (3.5-5.1); SODIUM LEVEL 140.0 MMOL/L (136-145)
[2025-04-16] MEDS: TORSEMIDE 20 MG TAB PO ONE (14:34)
[2025-04-16] MEDS: METOPROLOL TART 12.5 MG PER 1/2 TAB PO SCH (20:52)
[2025-04-17] VITALS (11 sets, daily range): BP systolic 117–167; BP diastolic 58–76; TEMP 97.5–98.3; O2SAT 96–99
[2025-04-17 08:46] LABS: ALT/SGPT 240.0 U/L (7.0-40); AST/SGOT 26.0 U/L (<34); CALCIUM LEVEL 7.6 MG/DL (8.3-10.6); CARBON DIOXIDE LEVEL 22.0 MMOL/L (20-31); CHLORIDE LEVEL 107.0 MMOL/L (98-107); CREATININE FOR GFR 2.48 MG/DL (0.55-1.30); GLOMERULAR FILTRATION RATE 19.0 (>32); POTASSIUM SERUM 4.5 MMOL/L (3.5-5.1); SODIUM LEVEL 142.0 MMOL/L (136-145)
[2025-04-17] MEDS ORDERED: LIDOCAINE 2% 100 MG/5 ML SDV (FOR ANES.) As Ordered ONE (17:16)
[2025-04-17] MEDS ORDERED: ETOMIDATE 20 MG/10 ML VIAL As Ordered ONE (17:17)
[2025-04-17] MEDS ORDERED: ONDANSETRON 4MG/2ML VIAL As Ordered ONE (17:17)
[2025-04-17] MEDS ORDERED: HYDROMORPHONE HCL 0.5 MG/0.5 ML SYRINGE IV PRN (18:40)
[2025-04-17] MEDS ORDERED: ONDANSETRON 4MG/2ML VIAL IV PRN (18:40)
[2025-04-18] VITALS: BP 133/62; TEMP 98; O2SAT 98
[2025-04-18 04:30] VITALS: BP 118/56; TEMP 97.6; O2SAT 97
[2025-04-18 06:46] LABS: BASO # 0.1 10^3/uL (0.0-0.2); BASO % 0.5 % (0.0-1.0); EOS # 0.1 10^3/uL (0.0-0.5); EOS % 0.8 % (0.0-3.0); LYMPH # 0.8 10^3/uL (1.5-5.0); LYMPH % 7.0 % (24.0-44.0); MONO # 0.9 10^3/uL (0.0-0.8); MONO % 7.4 % (2.0-8.0); NEUTROPHILS # 9.4 10^3/uL (1.5-8.5); NEUTROPHILS % 79.1 % (36.0-66.0); PLATELET COUNT, AUTOMATED 118 10^3/uL (150-450)
[2025-04-18 07:13] LABS: CALCIUM LEVEL 7.8 MG/DL (8.3-10.6); CARBON DIOXIDE LEVEL 22.0 MMOL/L (20-31); CHLORIDE LEVEL 105.0 MMOL/L (98-107); CREATININE FOR GFR 2.52 MG/DL (0.55-1.30); GLOMERULAR FILTRATION RATE 18.7 (>32); MAGNESIUM LEVEL 1.4 MG/DL (1.8-2.4); POTASSIUM SERUM 5.1 MMOL/L (3.5-5.1); SODIUM LEVEL 139.0 MMOL/L (136-145)
[2025-04-18 08:04] VITALS: BP 120/59; TEMP 98; O2SAT 96
[2025-04-18] MEDS: MAG SULF 1GM/100ML (MAG RUN) 1 GM in IV 1 EA IV SCH (10:15)
[2025-04-18] MEDS: MAGNESIUM OXIDE 400 MG TAB PO SCH (10:15)
[2025-04-18 12:04] VITALS: BP_SYST 120; BP_SYST 138; BP_DIAS 58; BP_DIAS 67; TEMP 97; TEMP 97.2; O2SAT 95; O2SAT 98
[2025-04-18] MEDS: SODIUM BICARBONATE 75 MEQ in NS 0.45% 1,000 ML IV SCH (12:24)
[2025-04-18 16:00] VITALS: BP 145/64; TEMP 97.6; O2SAT 100
[2025-04-18 16:30] LABS: CALCIUM LEVEL 7.7 MG/DL (8.3-10.6); CARBON DIOXIDE LEVEL 21.0 MMOL/L (20-31); CHLORIDE LEVEL 105.0 MMOL/L (98-107); CREATININE FOR GFR 2.48 MG/DL (0.55-1.30); GLOMERULAR FILTRATION RATE 19.0 (>32); POTASSIUM SERUM 5.2 MMOL/L (3.5-5.1); SODIUM LEVEL 139.0 MMOL/L (136-145)
[2025-04-18 21:02] VITALS: BP 151/69; TEMP 98.1; O2SAT 98
[2025-04-18] MEDS: SENNA 8.6 MG TAB PO SCH (21:55)
[2025-04-18] MEDS: DOCUSATE SODIUM 100 MG CAPSULE PO SCH (21:55)
[2025-04-19 00:46] VITALS: BP 167/70; TEMP 98.3; O2SAT 96
[2025-04-19 03:36] VITALS: BP 139/65; TEMP 98.2; O2SAT 98
[2025-04-19 06:44] LABS: PLATELET COUNT, AUTOMATED 105 10^3/uL (150-450)
[2025-04-19 07:14] LABS: ALT/SGPT 119.0 U/L (7.0-40); AST/SGOT 16.0 U/L (<34); CALCIUM LEVEL 7.7 MG/DL (8.3-10.6); CARBON DIOXIDE LEVEL 22.0 MMOL/L (20-31); CHLORIDE LEVEL 103.0 MMOL/L (98-107); CREATININE FOR GFR 2.44 MG/DL (0.55-1.30); GLOMERULAR FILTRATION RATE 19.4 (>32); MAGNESIUM LEVEL 2.1 MG/DL (1.8-2.4); POTASSIUM SERUM 5.0 MMOL/L (3.5-5.1); SODIUM LEVEL 138.0 MMOL/L (136-145)
[2025-04-19 07:57] VITALS: BP 158/73; TEMP 98.1; O2SAT 96
[2025-04-19 11:48] VITALS: BP 152/69; TEMP 97.2; O2SAT 94
[2025-04-19 16:43] VITALS: BP 127/58; TEMP 98.2; O2SAT 97
[2025-04-19] MEDS: MIRALAX *UNIT DOSE* 17 GM PACKET PO SCH (17:45)
[2025-04-19 20:01] VITALS: BP 156/72; TEMP 97.7; O2SAT 100
[2025-04-19] MEDS: DOCUSATE SODIUM 100 MG CAPSULE PO SCH (22:45)
[2025-04-20 00:22] VITALS: BP 124/59; TEMP 98.4; O2SAT 95
[2025-04-20 03:20] VITALS: BP 124/79; TEMP 97.9; O2SAT 96
[2025-04-20 07:32] LABS: PLATELET COUNT, AUTOMATED 100 10^3/uL (150-450)
[2025-04-20 08:00] VITALS: BP 155/65; TEMP 97.1; O2SAT 97
[2025-04-20 08:04] LABS: ALT/SGPT 315.0 U/L (7.0-40); AST/SGOT 145.0 U/L (<34); CALCIUM LEVEL 7.8 MG/DL (8.3-10.6); CARBON DIOXIDE LEVEL 23.0 MMOL/L (20-31); CHLORIDE LEVEL 103.0 MMOL/L (98-107); CREATININE FOR GFR 2.5 MG/DL (0.55-1.30); GLOMERULAR FILTRATION RATE 18.9 (>32); MAGNESIUM LEVEL 2.3 MG/DL (1.8-2.4); POTASSIUM SERUM 4.5 MMOL/L (3.5-5.1); SODIUM LEVEL 137.0 MMOL/L (136-145)
[2025-04-20 12:15] VITALS: BP 165/75; TEMP 97.6; O2SAT 100
[2025-04-20 16:00] VITALS: BP 171/89; TEMP 97.7; O2SAT 98
[2025-04-20] MEDS: LACTULOSE 20 GM/30 ML SYRUP UDC PO ONE (17:47)
[2025-04-20 20:05] VITALS: BP 140/86; TEMP 97.8; O2SAT 96
[2025-04-21] VITALS: BP 149/64; TEMP 97.9; O2SAT 96
[2025-04-21 04:55] VITALS: BP 170/77; TEMP 97.7; O2SAT 96
[2025-04-21 07:48] VITALS: BP 139/70; TEMP 98.3; O2SAT 97
[2025-04-21 08:02] LABS: PLATELET COUNT, AUTOMATED 118 10^3/uL (150-450)
[2025-04-21 08:39] LABS: ALT/SGPT 231.0 U/L (7.0-40); AST/SGOT 46.0 U/L (<34); CALCIUM LEVEL 7.8 MG/DL (8.3-10.6); CARBON DIOXIDE LEVEL 21.0 MMOL/L (20-31); CHLORIDE LEVEL 105.0 MMOL/L (98-107); CREATININE FOR GFR 2.31 MG/DL (0.55-1.30); GLOMERULAR FILTRATION RATE 20.7 (>32); MAGNESIUM LEVEL 2.3 MG/DL (1.8-2.4); POTASSIUM SERUM 4.2 MMOL/L (3.5-5.1); SODIUM LEVEL 139.0 MMOL/L (136-145)
[2025-04-21] MEDS: SODIUM BICARBONATE 325 MG TAB PO SCH (09:40)
[2025-04-21] MEDS: amLODIPine 5 MG TAB PO SCH (09:41)
[2025-04-21 12:00] VITALS: BP 154/72; TEMP 98.1; O2SAT 94
[2025-04-21] MEDS: LACTULOSE 20 GM/30 ML SYRUP UDC PO ONE (13:52)
[2025-04-21] MEDS: LACTULOSE 20 GM/30 ML SYRUP UDC PO SCH (21:21)
[2025-04-22 05:13] VITALS: BP 127/67; TEMP 98.7; O2SAT 90
[2025-04-22 07:21] LABS: CK-MB VALUE MASS 2.5 NG/ML (<3.6)
[2025-04-22 07:22] LABS: CPK CREATINE PHOSPHOKINASE 23.0 U/L (34-145); MB/CK RELATIVE INDEX 10.86 (< OR =4)
[2025-04-22] MEDS: FLEET ENEMA PR PRN (22:15)
[2025-04-23 04:00] VITALS: BP 155/72; TEMP 98.5; O2SAT 100
[2025-04-23 12:11] LABS: PLATELET COUNT, AUTOMATED 92 10^3/uL (150-450)
[2025-04-23 12:14] LABS: ALT/SGPT 93.0 U/L (7.0-40); AST/SGOT 17.0 U/L (<34); CALCIUM LEVEL 7.5 MG/DL (8.3-10.6); CARBON DIOXIDE LEVEL 23.0 MMOL/L (20-31); CHLORIDE LEVEL 105.0 MMOL/L (98-107); CREATININE FOR GFR 2.08 MG/DL (0.55-1.30); GLOMERULAR FILTRATION RATE 23.5 (>32); POTASSIUM SERUM 4.7 MMOL/L (3.5-5.1); SODIUM LEVEL 138.0 MMOL/L (136-145)
[2025-04-23] MEDS: cefTRIAXone SOD 1 GM in DEXTROSE 5% (D5W) ADV/MINI-BAG 50 ML IV SCH (12:54)
[2025-04-23] MEDS: DOXYCYCLINE HYCLATE 100 MG TABLET PO SCH (12:54)
[2025-04-23] MEDS: NS (Normal Saline) 0.9% 1,000 ML IV SCH (12:55)
[2025-04-23 13:40] VITALS: BP 126/58; TEMP 98.3; O2SAT 96
[2025-04-23 20:21] VITALS: BP 152/72; TEMP 97.7; O2SAT 96
[2025-04-24 05:53] VITALS: BP 143/67; TEMP 98.2; O2SAT 92
[2025-04-24 07:57] LABS: PLATELET COUNT, AUTOMATED 88 10^3/uL (150-450)
[2025-04-24 08:00] LABS: ALT/SGPT 75.0 U/L (7.0-40); AST/SGOT 14.0 U/L (<34); CALCIUM LEVEL 7.5 MG/DL (8.3-10.6); CARBON DIOXIDE LEVEL 24.0 MMOL/L (20-31); CHLORIDE LEVEL 107.0 MMOL/L (98-107); CREATININE FOR GFR 1.99 MG/DL (0.55-1.30); GLOMERULAR FILTRATION RATE 24.8 (>32); POTASSIUM SERUM 4.6 MMOL/L (3.5-5.1); SODIUM LEVEL 138.0 MMOL/L (136-145)
[2025-04-24 12:00] VITALS: BP 147/68; TEMP 98.6; O2SAT 95
[2025-04-24] MEDS ORDERED: SALIVA SUBSTITUTE BTL MT PRN (15:10)
[2025-04-24] MEDS ORDERED: POLYVINYL ALCOHOL OPHTH SOLN 15ML (LIQUITEARS) OU PRN (15:10)
[2025-04-24] MEDS ORDERED: HYOSCYAMINE SULFATE 0.125 MG SUBL TABLET SL PRN (15:10)
[2025-04-24] MEDS ORDERED: ATROPINE SULFATE 1% OPHTH SOLN 2 ML BTL SL PRN (15:10)
[2025-04-24] MEDS: MORPHINE 10 MG/0.5 ML ORAL CONCENTRATE SOLUTION U/D SL PRN (15:30)
[2025-04-24] MEDS: SENNA 8.6 MG TAB PO SCH (20:54)
[2025-04-24] MEDS: GABAPENTIN 100 MG CAP PO SCH (20:54)
[2025-04-25] MEDS: ACETAMINOPHEN 325 MG TAB PO PRN (04:04)
[2025-04-25] MEDS: ONDANSETRON 4MG/2ML VIAL IV PRN (04:04)
[2025-04-25 08:28] VITALS: BP 151/67
[2025-04-25] MEDS: LORazepam 1 MG TAB PO PRN (08:28)
[2025-04-25] MEDS: ONDANSETRON 4MG ORAL DISINTEGRATING TAB PO SCH (14:00)
[2025-04-26] MEDS ORDERED: SENNA 8.6 MG TAB PO SCH (09:00)
== END 2025-04-26 06:35 | disposition expired | DRG 871 ==
LOC: M ED 15:50 → M ED INP 19:32 → M PCU 22:13 → M MSPAV 04-13 17:09
PROVIDERS: ADMIT Student in an Organized Health Care Education/Training Program; ATTEND Student in an Organized Health Care Education/Training Program
PROC: 0Y9H0ZZ Drainage of Right Lower Leg, Open Approach (ICD-10-PCS; 2025-04-17)
PROC: 0HCKXZZ Extirpation of Matter from Right Lower Leg Skin, External Approach (ICD-10-PCS; principal; 2025-04-17 08:30)
DX: A41.9 Sepsis, unspecified organism (principal); J69.0 Pneumonitis due to inhalation of food and vomit; N04.9 Nephrotic syndrome with unspecified morphologic changes; E87.0 Hyperosmolality and hypernatremia; N17.9 Acute kidney failure, unspecified; L03.115 Cellulitis of right lower limb; J96.11 Chronic respiratory failure with hypoxia; I96 Gangrene, not elsewhere classified; E87.20 Acidosis, unspecified; R60.1 Generalized edema; M06.9 Rheumatoid arthritis, unspecified; E78.5 Hyperlipidemia, unspecified; N18.32 Chronic kidney disease, stage 3b; K21.9 Gastro-esophageal reflux disease without esophagitis; R33.9 Retention of urine, unspecified; J44.9 Chronic obstructive pulmonary disease, unspecified; D63.1 Anemia in chronic kidney disease; K59.00 Constipation, unspecified; R73.9 Hyperglycemia, unspecified; I25.10 Atherosclerotic heart disease of native coronary artery without angina pectoris; R74.01 Elevation of levels of liver transaminase levels; Z99.81 Dependence on supplemental oxygen; K22.70 Barrett's esophagus without dysplasia; Z51.5 Encounter for palliative care; Z79.899 Other long term (current) drug therapy; Z96.642 Presence of left artificial hip joint; M19.90 Unspecified osteoarthritis, unspecified site; Z66 Do not resuscitate